=== PATIENT | male | born 1935 | race Hispanic/Latino ===

== ENCOUNTER 2017-05-14 11:28 | Inpatient (IN) | payer MEDICARE ==
--- NOTE | 2017-05-14 13:31 | C.PDOC ---
History Of Present Illness 81-year-old male brought in by EMS with complaints of feeling unwell. Son reports that patient lives with his other brother; apparently today they were being evicted from thier hous. EMS was called, jen apparently found in his own bed, covered in feces. Patient is awake & aler but mildly confused. Denies current physical complaints. Time Seen by Provider: 05/14/17 12:09 Chief Complaint (Nursing): Medical Clearance History Per: Patient, Family (son at bedside ) History/Exam Limitations: other (mild confusion ) Past Medical History Reviewed: Historical Data, Nursing Documentation, Vital Signs Vital Signs: Last Vital Signs Temp 97.9 F 05/20/17 08:30 Pulse 105 H 05/20/17 09:47 Resp 20 05/20/17 08:30 BP 152/75 H 05/20/17 09:47 Pulse Ox 95 05/20/17 08:30 - Medical History PMH: No Chronic Diseases Surgical History: CABG Family History: States: No Known Family Hx - Social History Hx Alcohol Use: No Hx Substance Use: No - Immunization History Hx Tetanus Toxoid Vaccination: No Hx Influenza Vaccination: No Hx Pneumococcal Vaccination: No Review Of Systems Except As Marked, All Systems Reviewed And Found Negative. Constitutional: Negative for: Fever, Weakness Cardiovascular: Negative for: Chest Pain, Palpitations Respiratory: Negative for: Shortness of Breath Gastrointestinal: Negative for: Nausea, Vomiting, Abdominal Pain Neurological: Positive for: Other (mildly confused ). Negative for: Weakness, Numbness, Headache, Dizziness Physical Exam - Physical Exam Appears: Well, Non-toxic, No Acute Distress Skin: Warm, Dry, No Rash Head: Atraumatic, Normacephalic Eye(s): bilateral: Normal Inspection, PERRL Oral Mucosa: Moist Cardiovascular: Rhythm Regular (mildy tachycardic ), No Murmur Respiratory: Normal Breath Sounds, No Rales, No Rhonchi, No Wheezing Extremity: Normal ROM, No Deformity, No Swelling Neurological/Psych: Other (awake, alert, mildly confused ) ED Course And Treatment - Laboratory Results Result Diagrams: 05/19/17 07:51 05/19/17 07:51 ECG: Interpreted By Me, Viewed By Me (sinus tachycardia 102 bpm, with PACs, left axis deviation, Q waves III, aVF, no acute ST changes) ECG Interpretation: Abnormal O2 Sat by Pulse Oximetry: 98 (RA) Pulse Ox Interpretation: Normal Progress Note: Bloodwork, UA, EKG ordered and reviewed. UA (+) for UTI, IV rocephin given. IV NS bolus given. - Physician Consult Information Physician Contacted: Edwar Marroquin Outcome Of Conversation: Discussed patient with Dr. Mateo Marroquin for UTI, failure to thrive, unable to take care of self, delirium. Disposition - Disposition Disposition: HOSPITALIZED Disposition Time: 16:57 Condition: STABLE - Clinical Impression Clinical Impression: UTI (urinary tract infection), Failure to thrive, Delirium - Scribe Statement The provider has reviewed the documentation as recorded by the Scribe (Sandor Alatorre) All medical record entries made by the Scribe were at my direction and personally dictated by me. I have reviewed the chart and agree that the record accurately reflects my personal performance of the history, physical exam, medical decision making, and the department course for this patient. I have also personally directed, reviewed, and agree with the discharge instructions and disposition. Decision To Admit - Pt Status Changed To: Hospital Disposition Of: Inpatient - Admit Certification Admit to Inpatient:: After my assessment, the patient will require hospitalization for at least two midnights. This is because of the severity of symptoms shown, intensity of services needed, and/or the medical risk in this patient being treated as an outpatient. - InPatient: Physician Admission Certification: I certify that this patient requires 2 or more midnights of care for the following reason:: see notes - . Bed Request Type: Regular Admitting Physician: Edwar Marroquin Patient Diagnosis: UTI (urinary tract infection), Failure to thrive, Delirium
--- NOTE | 2017-05-14 14:50 | RAD ---
HISTORY: EVAL COMPARISON: Chest x-ray image performed 09/13/10 TECHNIQUE: Chest, one view. FINDINGS: Examination limited by habitus. LUNGS: Mild interstitial prominence may be chronic. Mild biapical pleural thickening. No focal consolidation. Scattered probable calcified granulomas. Please note that chest x-ray has limited sensitivity for the detection of pulmonary masses. PLEURA: No significant pleural effusion identified. No definite pneumothorax . CARDIOVASCULAR: Median sternotomy wires with evidence of CABG. Prosthetic cardiac valve. Mild cardiomegaly. Ectatic aorta containing atherosclerotic calcifications. OSSEOUS STRUCTURES: Degenerative changes. VISUALIZED UPPER ABDOMEN: Unremarkable. OTHER FINDINGS: None. IMPRESSION: Mild interstitial prominence may be chronic. Mild biapical pleural thickening. Scattered probable calcified granulomas. Mild cardiomegaly. Median sternotomy wires with evidence of CABG and prosthetic cardiac valve.
[2017-05-14 15:18] LABS: BASO % 0.2 % (0.0-2.0); EOS # 0.1 K/uL (0.0-0.7); EOS % 1.3 % (0.0-4.0); HEMOGLOBIN 16.6 g/dL (12.0-18.0); LYMPH # 1.4 K/uL (1.0-4.3); LYMPH % 16.4 % (20.0-40.0); MEAN CELL VOLUME 87.9 fL (80.0-94.0); MEAN CORPUSCULAR HGB CONC 35.3 g/dL (33.0-37.0); MEAN PLATELET VOLUME 9.5 fL (7.2-11.7); MONO # 0.7 K/uL (0.0-0.8); MONO % 8.8 % (0.0-10.0); NEUT # 6.1 K/uL (1.8-7.0); NEUT % 73.3 % (50.0-75.0); NRBC % 0.1 % (0.0-2.0); RBC 5.34 Mil/uL (4.40-5.90); RED CELL DISTRIBUTION WIDTH 13.6 % (11.5-14.5); WHITE BLOOD COUNT 8.4 K/uL (4.8-10.8)
[2017-05-14 15:25] LABS: SQUAMOUS EPITHIAL 1 /hpf (0-5); URINE BILIRUBIN NEGATIVE (NEGATIVE); URINE BLOOD NEGATIVE (NEGATIVE); URINE CLARITY Clear (Clear); URINE COLOR Yellow (YELLOW); URINE GLUCOSE (UA) NORMAL (Normal); URINE LEUKOCYTE ESTERASE 2+ Leu/uL (Negative); URINE PROTEIN 1+ mg/dL (NEGATIVE); URINE UROBILINOGEN NORMAL mg/dL (0.2-1.0)
[2017-05-14 15:32] LABS: CALCIUM 9.6 mg/dl (8.6-10.4); GFR AFRICAN-AMERICAN > 60; GFR NON-AFRICAN AMERICAN > 60
[2017-05-14 15:36] LABS: ALB/GLOB RATIO 0.9 (1.0-2.1); ALBUMIN 4.6 g/dL (3.5-5.0); ALT/SGPT < 6 U/L (21-72); AST/SGOT 49 U/L (17-59); BLOOD UREA NITROGEN 23 mg/dL (9-20)
[2017-05-14 15:43] LABS: CK-MB 1.27 ng/mL (0.0-3.38)
[2017-05-14] MEDS ORDERED: cefTRIAXone IV 1 gm in Dextros 50 ML IVPB ONE (17:08)
--- NOTE | 2017-05-14 22:32 | CP.PCM.HP ---
Past Patient History - Past Social History Smoking Status: Never Smoked - PSYCHIATRIC Hx Substance Use: No - SURGICAL HISTORY Hx Coronary Artery Bypass Graft: Yes Meds Allergies/Adverse Reactions: Allergies Allergy/AdvReac Type Severity Reaction Status Date / Time No Known Allergies Allergy Verified 05/14/17 13:33 Results - Vital Signs Recent Vital Signs: Last Vital Signs Temp 98.6 F 05/14/17 19:17 Pulse 103 H 05/14/17 19:17 Resp 20 05/14/17 19:17 BP 129/71 05/14/17 19:17 Pulse Ox 99 05/14/17 19:17 - Labs Result Diagrams: 05/14/17 15:15 05/14/17 15:15 Labs: Laboratory Results - last 24 hr 05/14/17 05/14/17 05/14/17 15:15 15:15 15:15 WBC 8.4 RBC 5.34 Hgb 16.6 Hct 46.9 MCV 87.9 MCH 31.0 MCHC 35.3 RDW 13.6 Plt Count 243 MPV 9.5 Neut % (Auto) 73.3 Lymph % (Auto) 16.4 L [place] % (Auto) 8.8 Eos % (Auto) 1.3 Baso % (Auto) 0.2 Neut # (Auto) 6.1 Lymph # (Auto) 1.4 [place] # (Auto) 0.7 Eos # (Auto) 0.1 Baso # (Auto) 0.0 Sodium 139 Potassium 5.8 H Chloride 99 Carbon Dioxide 25 Anion Gap 20 BUN 23 H Creatinine 0.8 Est GFR ( Amer) > 60 Est GFR (Non-Af Amer) > 60 Random Glucose 146 H Calcium 9.6 Total Bilirubin 1.4 H AST 49 ALT < 6 L Alkaline Phosphatase 92 Total Creatine Kinase 64 CK-MB (Mass) 1.27 Troponin I 0.0150 Total Protein 9.4 H Albumin 4.6 Globulin 4.9 H Albumin/Globulin Ratio 0.9 L Urine Color Yellow Urine Clarity Clear Urine pH 6.0 Ur Specific [place] 1.020 Urine Protein 1+ H Urine Glucose (UA) Normal Urine Ketones Trace Urine Blood Negative Urine Nitrate Negative Urine Bilirubin Negative Urine Urobilinogen Normal Ur Leukocyte Esterase 2+ H Urine WBC (Auto) 26 H Urine RBC (Auto) 3 Ur Squamous Epith Cells 1
[2017-05-15 02:47] LABS: ALBUMIN 3.9 g/dL (3.5-5.0); ALT/SGPT 22 U/L (21-72); AST/SGOT 18 U/L (17-59); BLOOD UREA NITROGEN 30 mg/dL (9-20); CALCIUM 9.3 mg/dl (8.6-10.4); GFR AFRICAN-AMERICAN > 60; GFR NON-AFRICAN AMERICAN > 60
--- NOTE | 2017-05-15 07:47 | CARD ---
APPROVED REPORT EKG Measurement Heart [id number] <Conclusion> Sinus tachycardia with premature atrial complexes Minimal voltage criteria for LVH, may be normal variant Inferior infarct, age undetermined Anterior infarct, age undetermined T wave abnormality, consider lateral ischemia Abnormal ECG
[2017-05-15] MEDS: Enoxaparin 40 mg Syringe SC SCH (09:41)
[2017-05-15] MEDS: Pantoprazole 40 mg EC Tab PO SCH (09:41)
--- NOTE | 2017-05-15 10:48 | CP.PCM.CON ---
History of Present Illness - History of Present Illness History of Present Illness: Neurology Consult Note for Dr. Gray Reason for consult: Altered mental status This is an 81 year old male with PMHx CAD s/p CABG 5 years ago who presented to the hospital with complaint of right sided abdominal pain. Patient states that he does not recall who called the ambulance for him. Patient states that he had this pain for the past 3 days. Per the ED note, patient was found covered in feces. Patient states that he lives with one of his sons who helps take care of him. Patient states that he is independent in ambulation and spends his time watching television or walking around his neighborhood. Patient denies acute changes in vision, dizziness, headache, tremors, weakness, paresthesias. PMHx: CAD PSHx: CABG 5 years ago Allergies: NKDA Social: Lives with son. Retired carpentry/danica worker. Denies tobacco, alcohol, drugs. Family Hx: Heart disease runs in the family PMD: denies Home medications: denies Review of Systems - Constitutional Constitutional: absent: Chills, Fever - EENT Eyes: absent: Change in Vision Ears: absent: Decreased Hearing Nose/Mouth/Throat: absent: Nasal Congestion - Cardiovascular Cardiovascular: absent: Chest Pain - Respiratory Respiratory: absent: Dyspnea - Gastrointestinal Gastrointestinal: absent: Abdominal Pain, Nausea, Vomiting - Genitourinary Genitourinary: absent: Dysuria, Urinary Frequency - Musculoskeletal Musculoskeletal: absent: Numbness, Tingling - Integumentary Integumentary: absent: Rash - Neurological Neurological: absent: Dizziness, Numbness, Headaches, Tingling, Tremor, Weakness - Psychiatric Psychiatric: absent: Anxiety - Endocrine Endocrine: absent: Palpitations Past Patient History - Past Medical History & Family History Past Medical History?: Yes - Past Social History Smoking Status: Never Smoked - MUSCULOSKELETAL/RHEUMATOLOGICAL Hx Falls: No - PSYCHIATRIC Hx Substance Use: No - SURGICAL HISTORY Hx Coronary Artery Bypass Graft: Yes Meds Allergies/Adverse Reactions: Allergies Allergy/AdvReac Type Severity Reaction Status Date / Time No Known Allergies Allergy Verified 05/14/17 13:33 - Medications Medications: Current Medications Enoxaparin Sodium (Lovenox) 40 mg SC DAILY [facility] Last Admin: 05/15/17 09:41 Dose: 40 mg Ceftriaxone Sodium 1 gm/ (Sodium Chloride) 100 mls @ 100 mls/hr IVPB DAILY [facility] Last Admin: 05/15/17 09:40 Dose: 100 mls/hr Pantoprazole Sodium (Protonix Ec Tab) 40 mg PO DAILY [facility] Last Admin: 05/15/17 09:41 Dose: 40 mg Pneumococcal Polyvalent Vaccine (Pneumovax 23 Vaccine) 0.5 ml IM .ONCE ONE Stop: 05/17/17 14:01 Physical Exam - Constitutional Appears: No Acute Distress - Head Exam Head Exam: ATRAUMATIC, NORMOCEPHALIC - Eye Exam Eye Exam: EOMI, PERRL - ENT Exam ENT Exam: Mucous Membranes Moist - Respiratory Exam Respiratory Exam: Clear to Auscultation Bilateral, NORMAL BREATHING PATTERN. absent: Rales, Rhonchi, Wheezes - Cardiovascular Exam Cardiovascular Exam: REGULAR RHYTHM, +S1, +S2, Systolic Murmur - GI/Abdominal Exam GI & Abdominal Exam: Normal Bowel Sounds, Soft. absent: Distended, Firm, Tenderness - Extremities Exam Extremities exam: Negative for: pedal edema - Neurological Exam Neurological exam: Alert, CN II-XII Intact, Normal Gait Additional comments: Oriented to person and place. Believes that the year is 1982, but also states that Alvin is the president. Patient is very forgetful having forgotten encounter with resident earlier in the morning. Muscle strength 5/5 in all 4 extremities. Sensations to light touch intact in all 4 extremities. Deep tendon reflexes 1/4 in all 4 extremities. - Psychiatric Exam Psychiatric exam: Normal Affect, Normal Mood Results - Vital Signs Recent Vital Signs: Last Vital Signs Temp 98.2 F 05/15/17 07:32 Pulse 88 05/15/17 07:32 Resp 20 05/15/17 07:32 BP 164/75 H 05/15/17 07:32 Pulse Ox 96 05/15/17 07:32 - Labs Result Diagrams: 05/14/17 15:15 05/15/17 02:26 Labs: Laboratory Results - last 24 hr 05/14/17 05/14/17 05/14/17 15:15 15:15 15:15 WBC 8.4 RBC 5.34 Hgb 16.6 Hct 46.9 MCV 87.9 MCH 31.0 MCHC 35.3 RDW 13.6 Plt Count 243 MPV 9.5 Neut % (Auto) 73.3 Lymph % (Auto) 16.4 L [place] % (Auto) 8.8 Eos % (Auto) 1.3 Baso % (Auto) 0.2 Neut # (Auto) 6.1 Lymph # (Auto) 1.4 [place] # (Auto) 0.7 Eos # (Auto) 0.1 Baso # (Auto) 0.0 Sodium 139 Potassium 5.8 H Chloride 99 Carbon Dioxide 25 Anion Gap 20 BUN 23 H Creatinine 0.8 Est GFR ( Amer) > 60 Est GFR (Non-Af Amer) > 60 Random Glucose 146 H Calcium 9.6 Total Bilirubin 1.4 H AST 49 ALT < 6 L Alkaline Phosphatase 92 Total Creatine Kinase 64 CK-MB (Mass) 1.27 Troponin I 0.0150 Total Protein 9.4 H Albumin 4.6 Globulin 4.9 H Albumin/Globulin Ratio 0.9 L Vitamin B12 Folate TSH 3rd Generation Urine Color Yellow Urine Clarity Clear Urine pH 6.0 Ur Specific [place] 1.020 Urine Protein 1+ H Urine Glucose (UA) Normal Urine Ketones Trace Urine Blood Negative Urine Nitrate Negative Urine Bilirubin Negative Urine Urobilinogen Normal Ur Leukocyte Esterase 2+ H Urine WBC (Auto) 26 H Urine RBC (Auto) 3 Ur Squamous Epith Cells 1 05/14/17 05/15/17 22:45 02:26 WBC RBC Hgb Hct MCV MCH MCHC RDW Plt Count MPV Neut % (Auto) Lymph % (Auto) [place] % (Auto) Eos % (Auto) Baso % (Auto) Neut # (Auto) Lymph # (Auto) [place] # (Auto) Eos # (Auto) Baso # (Auto) Sodium 139 Potassium 4.4 Chloride 100 Carbon Dioxide 26 Anion Gap 17 BUN 30 H Creatinine 1.0 Est GFR ( Amer) > 60 Est GFR (Non-Af Amer) > 60 Random Glucose 144 H Calcium 9.3 Total Bilirubin 0.5 AST 18 ALT 22 Alkaline Phosphatase 66 Total Creatine Kinase CK-MB (Mass) Troponin I Total Protein 7.8 Albumin 3.9 Globulin 3.9 Albumin/Globulin Ratio 1.0 Vitamin B12 Cancelled 391 Folate > 20.0 TSH 3rd Generation 7.63 H Urine Color Urine Clarity Urine pH Ur Specific [place] Urine Protein Urine Glucose (UA) Urine Ketones Urine Blood Urine Nitrate Urine Bilirubin Urine Urobilinogen Ur Leukocyte Esterase Urine WBC (Auto) Urine RBC (Auto) Ur Squamous Epith Cells Assessment & Plan - Assessment and Plan (Free Text) Assessment: This is an 81 year old male with PMHx CAD s/p CABG 5 years ago who was admitted to the hospital for UTI. Neurology consulted for altered mental status. At this time he is not altered. Patient likely had an episode of toxic metabolic encephalopathy from the UTI that is now resolving because its source is being treated. However, we cannot exclude the possibility of seizures as a cause just yet. 1. 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 Per Dr. Gray, also see old right cerebellum, and anterior circulation territory lesions. Old infarcts likely from atherosclerotic disease Follow up official Head CTA read. Per Dr. Gray, there appears to be calcifications in the vertebral arteries as well as left DELICATESSEN CLERK stenosis. Follow up carotid duplex Follow up MRI w. & w.o. contrast Patient seen and discussed with Dr. Gray
[2017-05-15] MEDS ORDERED: Iodixanol 320 mg/ml 150 ml Bottle IV ONE (12:31)
--- NOTE | 2017-05-15 13:55 | CT ---
PROCEDURE: CT HEAD WITHOUT CONTRAST. HISTORY: AMS COMPARISON: None available. TECHNIQUE: Axial computed tomography images were obtained through the head/brain without intravenous contrast. Radiation dose: Total exam DLP = 1088.61 mGy-cm. This CT exam was performed using one or more of the following dose reduction techniques: Automated exposure control, adjustment of the mA and/or kV according to patient size, and/or use of iterative reconstruction technique. FINDINGS: HEMORRHAGE: No intracranial hemorrhage. BRAIN: There is an old infarction in the left occipital lobe. There is no mass, mass effect or abnormal extra-axial fluid collection.There are coarse atherosclerotic calcifications in the cavernous carotid arteries. VENTRICLES: There is moderate age-related global parenchymal volume loss and proportionate enlargement of the ventricles and cortical sulci. There is mild nonspecific prominence of bifrontal extra-axial CSF spaces. CALVARIUM: The skull base and calvarium are normal. PARANASAL SINUSES: Predominantly clear. MASTOID AIR CELLS: Predominantly clear. OTHER FINDINGS: None. IMPRESSION: No acute intracranial abnormality. 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
--- NOTE | 2017-05-15 15:28 | CT ---
PROCEDURE: CTA HEAD AND NECK WITH CONTRAST HISTORY: Altered mental status COMPARISON: None available. TECHNIQUE: Initial noncontrast head CT was performed. Subsequently, CT angiogram of the head and neck were performed after the intravenous administration of 80 mL of Omnipaque 350. Contiguous 1.5mm thick images were obtained in the axial plane of the neck. 2-D coronal and sagittal MPR images were obtained. Imaging postprocessing was performed with 3-D images also obtained. A delayed contrast head CT was also obtained. This CT exam was performed using one or more of the following dose reduction techniques: Automated exposure control, adjustment of the mA and/or kV according to patient size, and/or use of iterative reconstruction technique. Contrast dose: 100 ML Visipaque Radiation dose: Total exam DLP = 611.45 mGy-cm. FINDINGS: HEAD: There are advanced atherosclerotic calcifications in the cavernous carotid arteries. Right: The intracranial internal carotid artery, and anterior and middle cerebral arteries are widely patent. Left: There is severe asymmetric narrowing of the intracranial internal carotid artery. The A1 segment is aplastic, an anatomic variant. The A2 segment of the anterior cerebral artery is widely patent. There is asymmetric narrowing of the M1 and M2 segments of the middle cerebral artery with mild attenuation of distal sylvian branches. Posterior circulation: The visualized intracranial vertebral arteries, basilar artery and posterior cerebral arteries are widely patent. Ther is no endoluminal filling defect to suggest thrombus. There is no intracranial saccular aneurysm. There is no abnormal enhancement on the postcontrast CT. NECK: There is a three vessel aortic arch. There is advanced atherosclerotic calcifications at the origins of the great vessels at the level of the aortic arch without significant stenosis. Right Carotid: On the right, the common carotid and external carotid arteries are widely patent. There are advanced atherosclerotic calcified plaques in the carotid bulb and proximal internal carotid artery with resultant severe hemodynamically significant approximately 76% stenosis by NASCET criteria. Left Carotid: On the left, the common carotid and external carotid arteries are widely patent.T there are severe calcified and noncalcified atherosclerotic plaques in the proximal internal carotid artery with resultant critical hemodynamically significant stenosis in the proximal internal carotid artery and a collapsed thread-like severely narrow distal internal carotid artery. The vertebral arteries are widely patent. The the left vertebral artery is dominant, an anatomic variant. IMPRESSION: 1. Critical hemodynamically significant stenosis in the proximal left internal carotid artery with narrow collapsed thread-like distal internal carotid artery. 2. Asymmetric severely narrow left intracranial internal carotid artery. 3. Asymmetric narrowing of the left middle cerebral artery. 4. Severe hemodynamically significant approximately 76% stenosis in the right proximal internal carotid artery. 5. Patent bilateral vertebral arteries. The left vertebral artery is dominant, an anatomic variant.
[2017-05-15] MEDS ORDERED: Gadodiamide 287 MG/ML VIAL (15ML) IV ONE (17:13)
--- NOTE | 2017-05-15 17:37 | CP.PCM.PN ---
Subjective - Date & Time of Evaluation Date of Evaluation: 05/15/17 Time of Evaluation: 12:40 - Subjective Subjective: clinically same Objective - Vital Signs/Intake and Output Vital Signs (last 24 hours): Temp Pulse Resp BP Pulse Ox 97.7 F 92 H 18 129/55 L 95 05/15/17 15:05 05/15/17 15:55 05/15/17 15:05 05/15/17 15:05 05/15/17 15:05 Intake and Output: 05/15/17 05/15/17 06:59 18:59 Intake Total 400 Balance 400 - Medications Medications: Current Medications Enoxaparin Sodium (Lovenox) 40 mg SC DAILY [facility] Last Admin: 05/15/17 09:41 Dose: 40 mg Ceftriaxone Sodium 1 gm/ (Sodium Chloride) 100 mls @ 100 mls/hr IVPB DAILY [facility] Last Admin: 05/15/17 09:40 Dose: 100 mls/hr Pantoprazole Sodium (Protonix Ec Tab) 40 mg PO DAILY [facility] Last Admin: 05/15/17 09:41 Dose: 40 mg Pneumococcal Polyvalent Vaccine (Pneumovax 23 Vaccine) 0.5 ml IM .ONCE ONE Stop: 05/17/17 14:01 - Labs Labs: 05/14/17 15:15 05/15/17 02:26 - Constitutional Appears: Well - Head Exam Head Exam: ATRAUMATIC, NORMAL INSPECTION, NORMOCEPHALIC - Eye Exam Eye Exam: EOMI, Normal appearance, PERRL Pupil Exam: NORMAL ACCOMODATION, PERRL - ENT Exam ENT Exam: Mucous Membranes Moist, Normal Exam - Neck Exam Neck Exam: Full ROM, Normal Inspection. absent: Lymphadenopathy - Respiratory Exam Respiratory Exam: Decreased Breath Sounds - Cardiovascular Exam Cardiovascular Exam: REGULAR RHYTHM, +S1, +S2 - GI/Abdominal Exam GI & Abdominal Exam: Soft, Diminished Bowel Sounds - Rectal Exam Rectal Exam: Deferred
[2017-05-16] MEDS: Enoxaparin 40 mg Syringe SC SCH (09:35)
[2017-05-16] MEDS: Pantoprazole 40 mg EC Tab PO SCH (09:35)
--- NOTE | 2017-05-16 11:59 | CP.PCM.PN ---
Subjective - Date & Time of Evaluation Date of Evaluation: 05/16/17 Time of Evaluation: 11:40 - Subjective Subjective: Neurology progress note for Dr. Gray Patient seen and examined. Patient reports no acute complaints at this time. Objective - Vital Signs/Intake and Output Vital Signs (last 24 hours): Temp Pulse Resp BP Pulse Ox 97.9 F 87 20 145/72 97 05/16/17 08:30 05/16/17 08:30 05/16/17 08:30 05/16/17 08:30 05/16/17 08:30 Intake and Output: 05/16/17 05/16/17 06:59 18:59 Intake Total 800 Balance 800 - Medications Medications: Current Medications Enoxaparin Sodium (Lovenox) 40 mg SC DAILY [facility] Last Admin: 05/16/17 09:35 Dose: 40 mg Ceftriaxone Sodium 1 gm/ (Sodium Chloride) 100 mls @ 100 mls/hr IVPB DAILY [facility] Last Admin: 05/16/17 09:35 Dose: 100 mls/hr Pantoprazole Sodium (Protonix Ec Tab) 40 mg PO DAILY [facility] Last Admin: 05/16/17 09:35 Dose: 40 mg Pneumococcal Polyvalent Vaccine (Pneumovax 23 Vaccine) 0.5 ml IM .ONCE ONE Stop: 05/17/17 14:01 - Labs Labs: 05/14/17 15:15 05/15/17 02:26 - Constitutional Appears: No Acute Distress - Head Exam Head Exam: ATRAUMATIC, NORMOCEPHALIC - Eye Exam Eye Exam: EOMI, Normal appearance - ENT Exam ENT Exam: Mucous Membranes Moist - Respiratory Exam Respiratory Exam: Clear to Ausculation Bilateral. absent: Rales, Rhonchi, Wheezes - Cardiovascular Exam Cardiovascular Exam: REGULAR RHYTHM, +S1, +S2 - GI/Abdominal Exam GI & Abdominal Exam: Soft, Normal Bowel Sounds. absent: Tenderness - Extremities Exam Extremities Exam: absent: Pedal Edema - Neurological Exam Neurological Exam: Alert, Awake Additional comments: Oriented to person and place. Believes that the year is 1982, but also states that Alvin is the president. Patient is very forgetful having forgotten encounter with resident earlier in the morning. Muscle strength 5/5 in all 4 extremities. Sensations to light touch intact in all 4 extremities. Deep tendon reflexes 1/4 in all 4 extremities. - Psychiatric Exam Psychiatric exam: Normal Affect, Normal Mood - Skin Skin Exam: Dry, Warm Assessment and Plan - Assessment and Plan (Free Text) Assessment: This is an 81 year old male with PMHx CAD s/p CABG 5 years ago who was admitted to the hospital for UTI. Neurology consulted for altered mental status. At this time he is not altered. Patient likely had an episode of toxic metabolic encephalopathy from the UTI that is now resolving because its source is being treated. However, we cannot exclude the possibility of seizures as a cause just yet. 1. Altered Mental Status Likely toxic metabolic encephalopathy from UTI Medical management for treatment of UTI Maintain adequate hydration Maintain normotension Maintain euglycemic state CT Head reveals old left RADIOPHARMACIST territory infarct. Per Dr. Gray, also see old right cerebellum, and anterior circulation territory lesions. Old infarcts likely from atherosclerotic disease Head CTA report: * Critically hemodynamically significant stenosis in the proximal left internal carotid artery with narrow collapsed thread-like distal internal carotid artery * asymmetric severely narrow left intracranial internal carotid artery * asymmetric narrowing of left MCA * Severe hemodynamically significant approximately 76% stenosis in the right proximal internal carotid artery * Patent vertebral arteries with left side dominant Carotid duplex preliminary report shows significant stenosis on the left and moderate on the right MRI w. & w.o. contrast reiterated old infarcts. No new acute infarcts seen. 2. Bilateral Carotid Disease Due to the bilateral carotid disease, patient will need to be on dual anti- platelet therapy and statin. Continue ASA 81 mg, Plavix 75 mg, and Crestor [address] Ramirez consulted, help appreciated Patient seen and discussed with Dr. Gray
--- NOTE | 2017-05-16 13:33 | VASCLAB ---
PROCEDURE: HISTORY: Carotid artery stenosis, AMS COMPARISON: None available. TECHNIQUE: Grayscale and duplex Doppler evaluation of the cervical carotid and vertebral arteries were performed. The common carotid, carotid bifurcations and cervical Internal Carotid Artery (ICA) and proximal External Carotid Artery (ECA) were evaluated. The vertebral arteries were evaluated for gross patency and flow direction. Report prepared by Ryland Dixon, BS, RVT FINDINGS: RIGHT CAROTID ARTERIES: 1. Common Carotid Artery: Moderate plaque formation of the right proximal CCA which does not results in hemodynamically significant stenosis. Maximum Peak Systolic velocity: 78 cm/sec: End-diastolic velocity 14 cm/sec. 2. Carotid Bifurcation: Calcific plaque formation. Maximum Peak Systolic velocity: 81 cm/sec: End-diastolic velocity 15 cm/sec. 3. Internal Carotid Artery: Severe plaque formation of the right proximal ICA which results in a hemodynamically significant stenosis. Plaque description: Calcific 3.1. Proximal Segment: Peak systolic velocity 231 cm/sec: End-diastolic velocity 67 cm/sec - % stenosis 70-95% 3.2. Middle Segment: Peak systolic velocity 164 cm/sec: End-diastolic velocity 37 cm/sec - % stenosis 50-60% 3.3. Distal Segment: Peak systolic velocity 127 cm/sec: End-diastolic velocity 40 cm/sec - % stenosis 0-15% 4. External Carotid Artery: No significant focal plaque formation. Peak systolic velocity 193 cm/sec 5. ICA/CCA Ratio: 3.0 LEFT CAROTID ARTERIES: 1. Common Carotid Artery: Moderate plaque formation of the left proximal CCA which does not results in hemodynamically significant stenosis. Maximum Peak Systolic velocity: 101 cm/sec: End-diastolic velocity 0 cm/sec. 2. Carotid Bifurcation: Calcific plaque formation. Maximum Peak Systolic velocity: 133 cm/sec: End-diastolic velocity 0 cm/sec. 3. Internal Carotid Artery: Severe plaque formation of the left proximal ICA which results in a hemodynamically significant stenosis. Plaque description: Calcific 3.1. Proximal Segment: Peak systolic velocity 49 cm/sec: End-diastolic velocity 0 cm/sec - % stenosis 0-15% 3.2. Middle Segment: Peak systolic velocity 109 cm/sec: End-diastolic velocity 0 cm/sec - % stenosis 0-15% 3.3. Distal Segment: Peak systolic velocity 29 cm/sec: End-diastolic velocity 0 cm/sec - % stenosis 0-15% 4. External Carotid Artery: No significant focal plaque formation. Peak systolic velocity 193 cm/sec 5. ICA/CCA Ratio: 1.3 VERTEBRAL ARTERIES: 1. Right Vertebral Artery: The right vertebral artery flow direction is antegrade. 2. Left Vertebral Artery: The left vertebral artery flow direction is antegrade. OTHER FINDINGS: 1. Right Brachial Blood pressure: 160 mmHg. 2. Left Brachial Blood pressure: IV line mmHg. IMPRESSION: RIGHT: 70-95% hemodynamically significant stenosis of the right extracranial carotid arteries. LEFT: The left internal carotid artery flow velocities are suggestive of more distal occlusion.
--- NOTE | 2017-05-16 14:43 | MRI ---
PROCEDURE: MRI of the brain dated 05/15/2017 HISTORY: Old infarcts. check for epileptogenic lesions comparison COMPARISON: Comparison made with CT scan and CTA brain dated 05/15/2017. TECHNIQUE: Multiplanar, multisequence MR images of the brain were obtained with and without intravenous contrast enhancement. 12 cc Omniscan injected for this examination. FINDINGS: HEMORRHAGE: The current study reveals no acute parenchymal, subarachnoid nor extra-axial hemorrhage. No evidence of hemosiderin deposition seen on gradient echo weighted sequence. DWI: No evidence of an acute or early subacute infarction seen on diffusion imaging. . BRAIN PARENCHYMA: Mild diffuse/ confluent chronic periventricular white matter ischemic changes most pronounced in the parietal regions left greater than right as well as a chronic discrete left posterior occipito parietal watershed zone infarct seen to better advantage on this exam as compared to CT scan of the brain. . Few scattered chronic bilateral basal nuclei as well as brainstem and left cerebellar chronic infarct changes are also present. . No enhancing parenchymal nor extra-axial masses or collections. No evidence of unusual meningeal enhancement. Moderate to significant generalized volume loss. ENHANCEMENT: No abnormal intracranial enhancement as above. . VENTRICLES: No obstructive hydrocephalus. . CRANIUM: Unremarkable. ORBITS: Grossly unremarkable. PARANASAL SINUSES/MASTOIDS: Clear VASCULAR SYSTEM: Questionable partial occlusion petrous and proximal cavernous segment left internal carotid artery. The remaining visualized major vascular flow voids at skull base patent. OTHER FINDINGS: None . IMPRESSION: No evidence of acute intracranial hemorrhage or infarct. Chronic white matter, basal nuclei, brainstem and cerebellar ischemic changes. 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 Suspect partial occlusion of the left internal carotid artery as detailed above. Moderate to significant volume loss. No evidence of enhancing lesions.
--- NOTE | 2017-05-16 15:31 | CP.PCM.PN ---
Subjective - Date & Time of Evaluation Date of Evaluation: 05/16/17 Time of Evaluation: 10:00 - Subjective Subjective: clinically same Objective - Vital Signs/Intake and Output Vital Signs (last 24 hours): Temp Pulse Resp BP Pulse Ox 97.9 F 87 20 145/72 97 05/16/17 08:30 05/16/17 08:30 05/16/17 08:30 05/16/17 08:30 05/16/17 08:30 Intake and Output: 05/16/17 05/16/17 06:59 18:59 Intake Total 800 Balance 800 - Medications Medications: Current Medications Enoxaparin Sodium (Lovenox) 40 mg SC DAILY [facility] Last Admin: 05/16/17 09:35 Dose: 40 mg Ceftriaxone Sodium 1 gm/ (Sodium Chloride) 100 mls @ 100 mls/hr IVPB DAILY [facility] Last Admin: 05/16/17 09:35 Dose: 100 mls/hr Pantoprazole Sodium (Protonix Ec Tab) 40 mg PO DAILY [facility] Last Admin: 05/16/17 09:35 Dose: 40 mg Pneumococcal Polyvalent Vaccine (Pneumovax 23 Vaccine) 0.5 ml IM .ONCE ONE Stop: 05/17/17 14:01 - Labs Labs: 05/14/17 15:15 05/15/17 02:26 - Constitutional Appears: Well - Head Exam Head Exam: ATRAUMATIC, NORMAL INSPECTION, NORMOCEPHALIC - Eye Exam Eye Exam: EOMI, Normal appearance, PERRL Pupil Exam: NORMAL ACCOMODATION, PERRL - ENT Exam ENT Exam: Mucous Membranes Moist, Normal Exam - Neck Exam Neck Exam: Full ROM, Normal Inspection. absent: Lymphadenopathy - Respiratory Exam Respiratory Exam: Decreased Breath Sounds - Cardiovascular Exam Cardiovascular Exam: REGULAR RHYTHM, +S1, +S2 - GI/Abdominal Exam GI & Abdominal Exam: Soft, Diminished Bowel Sounds - Rectal Exam Rectal Exam: Deferred
[2017-05-17] MEDS: Enoxaparin 40 mg Syringe SC SCH (10:31)
--- NOTE | 2017-05-17 11:18 | CP.PCM.PN ---
<Cortez Mendiola - Last Filed: 05/17/17 17:11> Subjective - Date & Time of Evaluation Date of Evaluation: 05/17/17 Time of Evaluation: 10:45 - Subjective Subjective: Neurology progress note for Dr. Gray Patient seen and examined. Patient states that he is doing fine today and has no complaints at this time. No acute events overnight per staff. Objective - Vital Signs/Intake and Output Vital Signs (last 24 hours): Temp Pulse Resp BP Pulse Ox 98.0 F 86 18 172/77 H 97 05/17/17 08:30 05/17/17 08:30 05/17/17 08:30 05/17/17 08:30 05/17/17 08:30 Intake and Output: 05/17/17 05/17/17 06:59 18:59 Intake Total 240 Balance 240 - Medications Medications: Current Medications Aspirin (Ecotrin) 81 mg PO DAILY [facility] Last Admin: 05/17/17 10:32 Dose: 81 mg Clopidogrel Bisulfate (Plavix) 75 mg PO DAILY [facility] Last Admin: 05/17/17 10:31 Dose: 75 mg Enoxaparin Sodium (Lovenox) 40 mg SC DAILY [facility] Last Admin: 05/17/17 10:31 Dose: 40 mg Famotidine (Pepcid) 20 mg PO BID [facility] Last Admin: 05/17/17 10:31 Dose: 20 mg Ceftriaxone Sodium 1 gm/ (Sodium Chloride) 100 mls @ 100 mls/hr IVPB DAILY [facility] Last Admin: 05/17/17 10:31 Dose: 100 mls/hr Pneumococcal Polyvalent Vaccine (Pneumovax 23 Vaccine) 0.5 ml IM .ONCE ONE Stop: 05/17/17 14:01 Rosuvastatin Calcium (Crestor) 10 mg PO [facility] Last Admin: 05/16/17 21:55 Dose: 10 mg - Labs Labs: 05/14/17 15:15 05/15/17 02:26 - Additional Findings Additional findings: - Constitutional Appears: No Acute Distress - Head Exam Head Exam: ATRAUMATIC, NORMOCEPHALIC - Eye Exam Eye Exam: EOMI, Normal appearance - ENT Exam ENT Exam: Mucous Membranes Moist - Respiratory Exam Respiratory Exam: Clear to Ausculation Bilateral. absent: Rales, Rhonchi, Wheezes - Cardiovascular Exam Cardiovascular Exam: REGULAR RHYTHM, +S1, +S2 - GI/Abdominal Exam GI & Abdominal Exam: Soft, Normal Bowel Sounds. absent: Tenderness - Extremities Exam Extremities Exam: absent: Pedal Edema - Neurological Exam Neurological Exam: Alert, Awake Additional comments: Oriented to person and place. Believes that the year is 1982, but also states that Alvin is the president. Patient is very forgetful having forgotten encounter with resident earlier in the morning. Muscle strength 5/5 in all 4 extremities. Sensations to light touch intact in all 4 extremities. Deep tendon reflexes 1/4 in all 4 extremities. - Psychiatric Exam Psychiatric exam: Normal Affect, Normal Mood - Skin Skin Exam: Dry, Warm Assessment and Plan - Assessment and Plan (Free Text) Assessment: This is an 81 year old male with PMHx CAD s/p CABG 5 years ago who was admitted to the hospital for UTI. Neurology consulted for altered mental status. At this time he is not altered. Patient likely had an episode of toxic metabolic encephalopathy from the UTI that is now resolving because its source is being treated. However, we cannot exclude the possibility of seizures as a cause just yet. Patient may have had a TIA since he was found at home lethargic and covered in feces. Plan: 1. Altered Mental Status Likely toxic metabolic encephalopathy from UTI versus TIA versus seizures Medical management for treatment of UTI Maintain adequate hydration Maintain normotension Maintain euglycemic state CT Head reveals old left FRE[employer]ER territory infarct. Per Dr. Gray, also see old right cerebellum, and anterior circulation territory lesions. Old infarcts likely from atherosclerotic disease Head CTA report: * Critically hemodynamically significant stenosis in the proximal left internal carotid artery with narrow collapsed thread-like distal internal carotid artery * asymmetric severely narrow left intracranial internal carotid artery * asymmetric narrowing of left MCA * Severe hemodynamically significant approximately 76% stenosis in the right proximal internal carotid artery * Patent vertebral arteries with left side dominant Carotid duplex preliminary report shows significant stenosis on the left and moderate on the right MRI w. & w.o. contrast reiterated old infarcts. No new acute infarcts seen. 2. Bilateral Carotid Disease with the possibility of an induced TIA as a result Due to the bilateral carotid disease, patient will need to be on dual anti- platelet therapy and statin. Continue ASA 81 mg, Plavix 75 mg, and Crestor [address] Ramirez consulted, help appreciated Tentative intervention for left carotid stenosis on Saturday Discussed with Dr. Gray <Min Gray - Last Filed: 05/18/17 17:53> Objective - Vital Signs/Intake and Output Vital Signs (last 24 hours): Temp Pulse Resp BP Pulse Ox 98.2 F 90 20 148/67 96 05/18/17 15:00 05/18/17 15:00 05/18/17 15:00 05/18/17 15:00 05/18/17 15:00 Intake and Output: 05/18/17 05/18/17 06:59 18:59 Intake Total 100 630 Balance 100 630 - Medications Medications: Current Medications Amlodipine Besylate (Norvasc) 5 mg PO DAILY [facility] Aspirin (Ecotrin) 81 mg PO DAILY [facility] Last Admin: 05/18/17 09:41 Dose: 81 mg Clopidogrel Bisulfate (Plavix) 75 mg PO DAILY [facility] Last Admin: 05/18/17 09:41 Dose: 75 mg Enoxaparin Sodium (Lovenox) 40 mg SC DAILY [facility] Last Admin: 05/18/17 09:41 Dose: 40 mg Famotidine (Pepcid) 20 mg PO BID [facility] Last Admin: 05/18/17 09:41 Dose: 20 mg Ceftriaxone Sodium 1 gm/ (Sodium Chloride) 100 mls @ 100 mls/hr IVPB DAILY [facility] Last Admin: 05/18/17 10:23 Dose: 100 mls/hr Rosuvastatin Calcium (Crestor) 10 mg PO HS [facility] Last Admin: 05/17/17 21:22 Dose: 10 mg - Labs Labs: 05/18/17 08:51 05/18/17 08:51 Attending/Attestation - Attestation I have personally seen and examined this patient.: Yes I have fully participated in the care of the patient.: Yes I have reviewed all pertinent clinical information, including history, physical exam and plan: Yes
[2017-05-17] MEDS ORDERED: Pneumococcal 23-Valent Vaccine IM ONE (14:00)
--- NOTE | 2017-05-17 17:12 | CP.PCM.PN ---
Subjective - Date & Time of Evaluation Date of Evaluation: 05/17/17 Time of Evaluation: 08:50 - Subjective Subjective: clinically same Objective - Vital Signs/Intake and Output Vital Signs (last 24 hours): Temp Pulse Resp BP Pulse Ox 97.9 F 83 20 154/68 H 95 05/17/17 15:58 05/17/17 15:58 05/17/17 15:58 05/17/17 15:58 05/17/17 15:58 Intake and Output: 05/17/17 05/17/17 06:59 18:59 Intake Total 240 Balance 240 - Medications Medications: Current Medications Aspirin (Ecotrin) 81 mg PO DAILY [facility] Last Admin: 05/17/17 10:32 Dose: 81 mg Clopidogrel Bisulfate (Plavix) 75 mg PO DAILY [facility] Last Admin: 05/17/17 10:31 Dose: 75 mg Enoxaparin Sodium (Lovenox) 40 mg SC DAILY [facility] Last Admin: 05/17/17 10:31 Dose: 40 mg Famotidine (Pepcid) 20 mg PO BID [facility] Last Admin: 05/17/17 10:31 Dose: 20 mg Ceftriaxone Sodium 1 gm/ (Sodium Chloride) 100 mls @ 100 mls/hr IVPB DAILY [facility] Last Admin: 05/17/17 10:31 Dose: 100 mls/hr Rosuvastatin Calcium (Crestor) 10 mg PO HS [facility] Last Admin: 05/16/17 21:55 Dose: 10 mg - Labs Labs: 05/14/17 15:15 05/15/17 02:26 - Constitutional Appears: Well - Head Exam Head Exam: ATRAUMATIC, NORMAL INSPECTION, NORMOCEPHALIC - Eye Exam Eye Exam: EOMI, Normal appearance, PERRL Pupil Exam: NORMAL ACCOMODATION, PERRL - ENT Exam ENT Exam: Mucous Membranes Moist, Normal Exam - Neck Exam Neck Exam: Full ROM, Normal Inspection. absent: Lymphadenopathy - Respiratory Exam Respiratory Exam: Decreased Breath Sounds - Cardiovascular Exam Cardiovascular Exam: REGULAR RHYTHM, +S1, +S2 - GI/Abdominal Exam GI & Abdominal Exam: Soft, Diminished Bowel Sounds - Rectal Exam Rectal Exam: Deferred
--- NOTE | 2017-05-17 17:45 | CP.PCM.CON ---
History of Present Illness - History of Present Illness History of Present Illness: Vascular surgery consult note for Dr. Rudd Pt s & e at bedside. Pt is a 81M with PMH of CAD, CABG 5 years ago, presented the ED with UTI and AMS. Pt denies any complaints currently. Pt denies any headaches, vision changes , chest pain, palpitations, SOB, abdominal pain, vomiting, nausea, diarrhea, constipation, leg swelling, leg pain, dysuria, urinary frequency. Vascular surgery was consulted for bilateral carotid stenosis. PMH: CAD, scarlet fever PSH: CABG 5 years ago All: NKDA Meds: denies SH: denies tobacco, alcohol, or drug use. FM: F from [place] at 58. M at 77. Brother from [place] at 72. Review of Systems - Constitutional Constitutional: absent: Fever, Headache, Malaise - EENT Eyes: absent: Change in Vision - Cardiovascular Cardiovascular: absent: Chest Pain, Dyspnea, Lightheadedness, Palpitations, Pedal Edema - Respiratory Respiratory: absent: Dyspnea - Gastrointestinal Gastrointestinal: absent: Abdominal Pain, Constipation, Diarrhea, Nausea, Vomiting - Genitourinary Genitourinary: absent: Dysuria, Urinary Frequency Past Patient History - Past Medical History & Family History Past Medical History?: Yes - Past Social History Smoking Status: Never Smoked - CARDIAC Hx Cardiac Disorders: Yes (CAD, CABG) - MUSCULOSKELETAL/RHEUMATOLOGICAL Hx Falls: No - PSYCHIATRIC Hx Substance Use: No - SURGICAL HISTORY Hx Coronary Artery Bypass Graft: Yes Meds Allergies/Adverse Reactions: Allergies Allergy/AdvReac Type Severity Reaction Status Date / Time No Known Allergies Allergy Verified 05/14/17 13:33 - Medications Medications: Current Medications Aspirin (Ecotrin) 81 mg PO DAILY [facility] Last Admin: 05/17/17 10:32 Dose: 81 mg Clopidogrel Bisulfate (Plavix) 75 mg PO DAILY [facility] Last Admin: 05/17/17 10:31 Dose: 75 mg Enoxaparin Sodium (Lovenox) 40 mg SC DAILY [facility] Last Admin: 05/17/17 10:31 Dose: 40 mg Famotidine (Pepcid) 20 mg PO BID [facility] Last Admin: 05/17/17 17:24 Dose: 20 mg Ceftriaxone Sodium 1 gm/ (Sodium Chloride) 100 mls @ 100 mls/hr IVPB DAILY [facility] Last Admin: 05/17/17 10:31 Dose: 100 mls/hr Rosuvastatin Calcium (Crestor) 10 mg PO HS [facility] Last Admin: 05/16/17 21:55 Dose: 10 mg Physical Exam - Constitutional Appears: Well, No Acute Distress - Head Exam Head Exam: ATRAUMATIC, NORMAL INSPECTION, NORMOCEPHALIC - Eye Exam Eye Exam: Normal appearance - Respiratory Exam Respiratory Exam: Clear to Auscultation Bilateral, NORMAL BREATHING PATTERN - Cardiovascular Exam Cardiovascular Exam: REGULAR RHYTHM, +S1, +S2 - GI/Abdominal Exam GI & Abdominal Exam: Normal Bowel Sounds, Soft. absent: Tenderness - Extremities Exam Extremities exam: Positive for: normal inspection - Neurological Exam Neurological exam: Alert, Oriented x3 - Psychiatric Exam Psychiatric exam: Normal Affect, Normal Mood - Skin Skin Exam: Dry, Warm Results - Vital Signs Recent Vital Signs: Last Vital Signs Temp 97.9 F 05/17/17 15:58 Pulse 83 05/17/17 15:58 Resp 20 05/17/17 15:58 BP 154/68 H 05/17/17 15:58 Pulse Ox 95 05/17/17 15:58 - Labs Result Diagrams: 05/14/17 15:15 05/15/17 02:26 Assessment & Plan - Assessment and Plan (Free Text) Assessment: 81M with bilateral carotid stenosis Plan: Interventional neurology has already been consulted on this pt Per neurology notes, intervention is planned on saturday we will defer treatment to their team d/w Dr Blaire Swain, PGY3
[2017-05-18 09:05] LABS: BASO # 0.1 K/uL (0.0-0.2); BASO % 1.4 % (0.0-2.0); EOS # 0.2 K/uL (0.0-0.7); EOS % 2.6 % (0.0-4.0); HEMOGLOBIN 15.5 g/dL (12.0-18.0); LYMPH # 1.8 K/uL (1.0-4.3); LYMPH % 21.8 % (20.0-40.0); MEAN CORPUSCULAR HGB CONC 35.2 g/dL (33.0-37.0); MEAN PLATELET VOLUME 9.9 fL (7.2-11.7); MONO # 0.8 K/uL (0.0-0.8); NEUT # 5.3 K/uL (1.8-7.0); NEUT % 64.2 % (50.0-75.0); NRBC % 0.1 % (0.0-2.0); RBC 5.01 Mil/uL (4.40-5.90); RED CELL DISTRIBUTION WIDTH 13.5 % (11.5-14.5); WHITE BLOOD COUNT 8.2 K/uL (4.8-10.8)
[2017-05-18 09:38] LABS: ALBUMIN 4.2 g/dL (3.5-5.0); ALT/SGPT 19 U/L (21-72); AST/SGOT 28 U/L (17-59); BLOOD UREA NITROGEN 25 mg/dL (9-20); CALCIUM 9.6 mg/dl (8.6-10.4); GFR AFRICAN-AMERICAN > 60; GFR NON-AFRICAN AMERICAN > 60
[2017-05-18] MEDS: Enoxaparin 40 mg Syringe SC SCH (09:41)
--- NOTE | 2017-05-18 11:25 | CP.PCM.PN ---
Subjective - Date & Time of Evaluation Date of Evaluation: 05/18/17 Time of Evaluation: 11:22 - Subjective Subjective: Vasc Sx: Dr Rudd Pt S&E. NAEO. No return of symptoms. On schedule for carotid stent with interventional neuro. Agree with plan No intervention planned from our team. Please reconsult as necessary d/w Dr Rudd Objective - Vital Signs/Intake and Output Vital Signs (last 24 hours): Temp Pulse Resp BP Pulse Ox 97.7 F 92 H 20 163/75 H 95 05/18/17 07:00 05/18/17 07:00 05/18/17 07:00 05/18/17 07:00 05/18/17 07:00 Intake and Output: 05/18/17 05/18/17 06:59 18:59 Intake Total 100 Balance 100 - Medications Medications: Current Medications Aspirin (Ecotrin) 81 mg PO DAILY [facility] Last Admin: 05/18/17 09:41 Dose: 81 mg Clopidogrel Bisulfate (Plavix) 75 mg PO DAILY [facility] Last Admin: 05/18/17 09:41 Dose: 75 mg Enoxaparin Sodium (Lovenox) 40 mg SC DAILY [facility] Last Admin: 05/18/17 09:41 Dose: 40 mg Famotidine (Pepcid) 20 mg PO BID [facility] Last Admin: 05/18/17 09:41 Dose: 20 mg Ceftriaxone Sodium 1 gm/ (Sodium Chloride) 100 mls @ 100 mls/hr IVPB DAILY [facility] Last Admin: 05/18/17 10:23 Dose: 100 mls/hr Rosuvastatin Calcium (Crestor) 10 mg PO HS [facility] Last Admin: 05/17/17 21:22 Dose: 10 mg - Labs Labs: 05/18/17 08:51 05/18/17 08:51 - Constitutional Appears: Non-toxic, No Acute Distress - ENT Exam ENT Exam: Mucous Membranes Moist - Respiratory Exam Respiratory Exam: absent: Accessory Muscle Use, Respiratory Distress - Cardiovascular Exam Cardiovascular Exam: REGULAR RHYTHM. absent: Tachycardia - GI/Abdominal Exam GI & Abdominal Exam: Soft. absent: Distended, Tenderness
--- NOTE | 2017-05-18 19:28 | CP.PCM.PN ---
Subjective - Date & Time of Evaluation Date of Evaluation: 05/18/17 Time of Evaluation: 09:00 - Subjective Subjective: clinically same Objective - Vital Signs/Intake and Output Vital Signs (last 24 hours): Temp Pulse Resp BP Pulse Ox 98.2 F 106 H 20 170/77 H 96 05/18/17 15:00 05/18/17 19:01 05/18/17 15:00 05/18/17 19:01 05/18/17 15:00 Intake and Output: 05/18/17 05/19/17 18:59 06:59 Intake Total 630 Balance 630 - Medications Medications: Current Medications Amlodipine Besylate (Norvasc) 5 mg PO DAILY [facility] Last Admin: 05/18/17 18:59 Dose: 5 mg Aspirin (Ecotrin) 81 mg PO DAILY [facility] Last Admin: 05/18/17 09:41 Dose: 81 mg Clopidogrel Bisulfate (Plavix) 75 mg PO DAILY [facility] Last Admin: 05/18/17 09:41 Dose: 75 mg Enoxaparin Sodium (Lovenox) 40 mg SC DAILY [facility] Last Admin: 05/18/17 09:41 Dose: 40 mg Famotidine (Pepcid) 20 mg PO BID [facility] Last Admin: 05/18/17 18:59 Dose: 20 mg Ceftriaxone Sodium 1 gm/ (Sodium Chloride) 100 mls @ 100 mls/hr IVPB DAILY [facility] Last Admin: 05/18/17 10:23 Dose: 100 mls/hr Rosuvastatin Calcium (Crestor) 10 mg PO HS [facility] Last Admin: 05/17/17 21:22 Dose: 10 mg - Labs Labs: 05/18/17 08:51 05/18/17 08:51 Assessment and Plan - Assessment and Plan (Free Text) Plan: Patient remains confused Status post neurologist MRI done on 228 which revealed no evidence of intracranial hemorrhage Discussed with the son Patient is for possible rehab Patient encouraged to eat
[2017-05-19 08:15] LABS: BASO # 0.1 K/uL (0.0-0.2); BASO % 1.3 % (0.0-2.0); EOS # 0.2 K/uL (0.0-0.7); EOS % 2.4 % (0.0-4.0); HEMOGLOBIN 14.7 g/dL (12.0-18.0); LYMPH # 1.1 K/uL (1.0-4.3); LYMPH % 14.2 % (20.0-40.0); MEAN CELL VOLUME 87.1 fL (80.0-94.0); MEAN CORPUSCULAR HEMOGLOBIN 30.8 pg (27.0-31.0); MEAN CORPUSCULAR HGB CONC 35.4 g/dL (33.0-37.0); MEAN PLATELET VOLUME 9.6 fL (7.2-11.7); MONO # 0.7 K/uL (0.0-0.8); MONO % 9.3 % (0.0-10.0); NEUT # 5.6 K/uL (1.8-7.0); NEUT % 72.8 % (50.0-75.0); RBC 4.77 Mil/uL (4.40-5.90); RED CELL DISTRIBUTION WIDTH 13.6 % (11.5-14.5); WHITE BLOOD COUNT 7.7 K/uL (4.8-10.8)
[2017-05-19 08:25] LABS: ALBUMIN 4.1 g/dL (3.5-5.0); ALT/SGPT 13 U/L (21-72); AST/SGOT 23 U/L (17-59); BLOOD UREA NITROGEN 28 mg/dL (9-20); CALCIUM 9.4 mg/dl (8.6-10.4); GFR AFRICAN-AMERICAN > 60; GFR NON-AFRICAN AMERICAN > 60
[2017-05-19] MEDS: Enoxaparin 40 mg Syringe SC SCH (10:24)
--- NOTE | 2017-05-19 15:58 | CP.PCM.PN ---
Subjective - Date & Time of Evaluation Date of Evaluation: 05/19/17 Time of Evaluation: 09:30 - Subjective Subjective: clinically same Objective - Vital Signs/Intake and Output Vital Signs (last 24 hours): Temp Pulse Resp BP Pulse Ox 98.5 F 91 H 20 101/49 L 96 05/19/17 15:29 05/19/17 15:29 05/19/17 15:29 05/19/17 15:29 05/19/17 15:29 Intake and Output: 05/19/17 05/19/17 06:59 18:59 Intake Total 500 640 Balance 500 640 - Medications Medications: Current Medications Amlodipine Besylate (Norvasc) 5 mg PO DAILY [facility] Last Admin: 05/19/17 10:25 Dose: Not Given Aspirin (Ecotrin) 81 mg PO DAILY [facility] Last Admin: 05/19/17 10:24 Dose: 81 mg Clopidogrel Bisulfate (Plavix) 75 mg PO DAILY [facility] Last Admin: 05/19/17 10:24 Dose: 75 mg Enoxaparin Sodium (Lovenox) 40 mg SC DAILY [facility] Last Admin: 05/19/17 10:24 Dose: 40 mg Famotidine (Pepcid) 20 mg PO BID [facility] Last Admin: 05/19/17 10:24 Dose: 20 mg Ceftriaxone Sodium 1 gm/ (Sodium Chloride) 100 mls @ 100 mls/hr IVPB DAILY [facility] Last Admin: 05/19/17 10:24 Dose: 100 mls/hr Rosuvastatin Calcium (Crestor) 10 mg PO HS [facility] Last Admin: 05/18/17 21:45 Dose: 10 mg - Labs Labs: 05/19/17 07:51 05/19/17 07:51 - Constitutional Appears: Well - Head Exam Head Exam: ATRAUMATIC, NORMAL INSPECTION, NORMOCEPHALIC - Eye Exam Eye Exam: EOMI, Normal appearance, PERRL Pupil Exam: NORMAL ACCOMODATION, PERRL - ENT Exam ENT Exam: Mucous Membranes Moist, Normal Exam - Neck Exam Neck Exam: Full ROM, Normal Inspection. absent: Lymphadenopathy - Respiratory Exam Respiratory Exam: Decreased Breath Sounds - Cardiovascular Exam Cardiovascular Exam: REGULAR RHYTHM, +S1, +S2 - GI/Abdominal Exam GI & Abdominal Exam: Soft, Diminished Bowel Sounds - Rectal Exam Rectal Exam: Deferred Assessment and Plan - Assessment and Plan (Free Text) Plan: Awaiting transfer to rehab Continue ceftriaxone Continue as ordered Patient is still remains demented Follow-up with the product safety consultant
[2017-05-20] MEDS: Enoxaparin 40 mg Syringe SC SCH (11:00)
--- NOTE | 2017-05-20 14:52 | CP.PCM.PN ---
Subjective - Date & Time of Evaluation Date of Evaluation: 05/20/17 Time of Evaluation: 14:03 - Subjective Subjective: The patient is an 81 year old male with PMH sig for CAD s/p CABG 5 years ago initially admitted to the hospital for a UTI with AMS that has resolved. Initial presentation included aphasia and right facial droop that has resolved. CTA showed bilateral carotid stenosis, with severe, string like occlusion on the left. Consulted for treatment of this symptomatic left ICA stenosis Objective - Vital Signs/Intake and Output Vital Signs (last 24 hours): Temp Pulse Resp BP Pulse Ox 97.9 F 105 H 20 152/75 H 98 05/20/17 08:30 05/20/17 09:47 05/20/17 08:30 05/20/17 09:47 05/20/17 14:03 Intake and Output: 05/20/17 05/20/17 06:59 18:59 Intake Total 500 Balance 500 - Medications Medications: Current Medications Amlodipine Besylate (Norvasc) 5 mg PO DAILY [facility] Last Admin: 05/20/17 11:00 Dose: 5 mg Aspirin (Ecotrin) 81 mg PO DAILY [facility] Last Admin: 05/20/17 11:00 Dose: 81 mg Clopidogrel Bisulfate (Plavix) 75 mg PO DAILY [facility] Last Admin: 05/20/17 11:00 Dose: 75 mg Enoxaparin Sodium (Lovenox) 40 mg SC DAILY [facility] Last Admin: 05/20/17 11:00 Dose: 40 mg Famotidine (Pepcid) 20 mg PO BID [facility] Last Admin: 05/20/17 11:00 Dose: 20 mg Rosuvastatin Calcium (Crestor) 10 mg PO HS [facility] Last Admin: 05/19/17 21:30 Dose: 10 mg - Labs Labs: 05/19/17 07:51 05/19/17 07:51 - Constitutional Appears: Well - Neurological Exam Neurological Exam: Alert Additional comments: Moving all extremites, in bed, conversive, cannot recall exact symptoms or what brought him to the hospital Assessment and Plan - Assessment and Plan (Free Text) Assessment: 81 year old male with high grade, near critical stenosis of the left carotid artery. While his symptoms of aphasia and right facial seen in the ER could be related to his enchapalopathy, we cannot rule out focal left hemispheric ischemia. Further, his severe caortid stenosis on this side would suggest that this is indeed a symptomatic lesion. Plan: 1-The patient has been on ASA and Plavix which are required for Carotid artery Agioplasty and Stenting ([place]). The patient is high risk and I believe this modality is most approriate for him to revascularize the carotid. 2-Will need a cardiology consult for clearance for Carotid Artery Angioplasty and Stenting. 3-Will need to obtain consent from family as the patient is confused
--- NOTE | 2017-05-20 19:37 | CP.PCM.PN ---
Subjective - Date & Time of Evaluation Date of Evaluation: 05/20/17 Time of Evaluation: 11:50 Objective - Vital Signs/Intake and Output Vital Signs (last 24 hours): Temp Pulse Resp BP Pulse Ox 97.3 F L 85 20 133/66 98 05/20/17 14:00 05/20/17 14:00 05/20/17 14:00 05/20/17 14:00 05/20/17 14:03 Intake and Output: 05/20/17 05/21/17 18:59 06:59 Intake Total 400 Balance 400 - Medications Medications: Current Medications Amlodipine Besylate (Norvasc) 5 mg PO DAILY [facility] Last Admin: 05/20/17 11:00 Dose: 5 mg Aspirin (Ecotrin) 81 mg PO DAILY [facility] Last Admin: 05/20/17 11:00 Dose: 81 mg Clopidogrel Bisulfate (Plavix) 75 mg PO DAILY [facility] Last Admin: 05/20/17 11:00 Dose: 75 mg Enoxaparin Sodium (Lovenox) 40 mg SC DAILY [facility] Last Admin: 05/20/17 11:00 Dose: 40 mg Famotidine (Pepcid) 20 mg PO BID [facility] Last Admin: 05/20/17 18:58 Dose: 20 mg Rosuvastatin Calcium (Crestor) 10 mg PO HS [facility] Last Admin: 05/19/17 21:30 Dose: 10 mg - Labs Labs: 05/19/17 07:51 05/19/17 07:51
[2017-05-21] MEDS: Enoxaparin 40 mg Syringe SC SCH (10:13)
--- NOTE | 2017-05-21 11:29 | CP.PCM.PN ---
Subjective - Date & Time of Evaluation Date of Evaluation: 05/21/17 Time of Evaluation: 10:00 - Subjective Subjective: Neurology progress note for Dr. White Patient seen and examined at bedside. Patient states that he has no complaints at this time. Patient states that he prefers being out of bed to chair. No acute events overnight. Objective - Vital Signs/Intake and Output Vital Signs (last 24 hours): Temp Pulse Resp BP Pulse Ox 97.7 F 92 H 20 147/65 96 05/21/17 08:43 05/21/17 10:14 05/21/17 08:43 05/21/17 10:14 05/21/17 08:43 - Medications Medications: Current Medications Amlodipine Besylate (Norvasc) 5 mg PO DAILY [facility] Last Admin: 05/21/17 10:12 Dose: 5 mg Aspirin (Ecotrin) 81 mg PO DAILY [facility] Last Admin: 05/21/17 10:13 Dose: 81 mg Clopidogrel Bisulfate (Plavix) 75 mg PO DAILY [facility] Last Admin: 05/21/17 10:13 Dose: 75 mg Enoxaparin Sodium (Lovenox) 40 mg SC DAILY [facility] Last Admin: 05/21/17 10:13 Dose: 40 mg Famotidine (Pepcid) 20 mg PO BID [facility] Last Admin: 05/21/17 10:12 Dose: 20 mg Rosuvastatin Calcium (Crestor) 10 mg PO HS [facility] Last Admin: 05/20/17 21:14 Dose: 10 mg - Labs Labs: 05/19/17 07:51 05/19/17 07:51 - Additional Findings Additional findings: - Constitutional Appears: No Acute Distress - Head Exam Head Exam: ATRAUMATIC, NORMOCEPHALIC - Eye Exam Eye Exam: EOMI, Normal appearance - ENT Exam ENT Exam: Mucous Membranes Moist - Respiratory Exam Respiratory Exam: Clear to Ausculation Bilateral. absent: Rales, Rhonchi, Wheezes - Cardiovascular Exam Cardiovascular Exam: REGULAR RHYTHM, +S1, +S2 - GI/Abdominal Exam GI & Abdominal Exam: Soft, Normal Bowel Sounds. absent: Tenderness - Extremities Exam Extremities Exam: absent: Pedal Edema - Neurological Exam Neurological Exam: Alert, Awake Additional comments: Oriented to person and place. Believes that the year is 1982, but also states that Alvin is the president. Patient is very forgetful having forgotten encounter with resident earlier in the morning. Muscle strength 5/5 in all 4 extremities. Sensations to light touch intact in all 4 extremities. Deep tendon reflexes 1/4 in all 4 extremities. - Psychiatric Exam Psychiatric exam: Normal Affect, Normal Mood - Skin Skin Exam: Dry, Warm Assessment and Plan - Assessment and Plan (Free Text) Assessment: This is an 81 year old male with PMHx CAD s/p CABG 5 years ago who was admitted to the hospital for UTI. Neurology consulted for altered mental status. At this time he is not altered. Patient likely had an episode of toxic metabolic encephalopathy from the UTI that is now resolving because its source is being treated. However, we cannot exclude the possibility of seizures as a cause just yet. Patient may have had a TIA since he was found at home lethargic and covered in feces. Plan: 1. Altered Mental Status Likely toxic metabolic encephalopathy from UTI versus TIA versus seizures Medical management for treatment of UTI Maintain adequate hydration Maintain normotension Maintain euglycemic state CT Head reveals old left [employer] territory infarct. Per Dr. Gray, also see old right cerebellum, and anterior circulation territory lesions. Old infarcts likely from atherosclerotic disease Head CTA report: * Critically hemodynamically significant stenosis in the proximal left internal carotid artery with narrow collapsed thread-like distal internal carotid artery * asymmetric severely narrow left intracranial internal carotid artery * asymmetric narrowing of left MCA * Severe hemodynamically significant approximately 76% stenosis in the right proximal internal carotid artery * Patent vertebral arteries with left side dominant Carotid duplex preliminary report shows significant stenosis on the left and moderate on the right MRI w. & w.o. contrast reiterated old infarcts. No new acute infarcts seen. 2. Bilateral Carotid Disease with the possibility of an induced TIA as a result Due to the bilateral carotid disease, patient will need to be on dual anti- platelet therapy and statin. Continue ASA 81 mg, Plavix 75 mg, and Crestor [address] Ramirez consulted, help appreciated telecommunications consultant has deemed the patient stable for procedure Per Dr. Bangura, needs family consent before procedure. Patient's son at bedside was notified and has left his phone number with the nursing staff. Patient seen and discussed with Dr. White.
--- NOTE | 2017-05-21 11:52 | CP.PCM.CON ---
History of Present Illness - History of Present Illness History of Present Illness: CC: Preop Clearence HPI: 81 year old man with following chronic medical conditions 1. Left ICA occlusions 2. ASHD s/p CABG 2011 3. HTN He presented to [facility] for left sided abdominal pain. He was reported as per neurology consult that he had aphasia and AMS. Patient is denying any focal neuro deficits. He is reporting he can perform >4 METS daily prior to his admission. Denies angina or CHF. Review of Systems - Review of Systems All systems: reviewed and no additional remarkable complaints except - Psychiatric Psychiatric: As Per HPI, Memory Loss Past Patient History - Past Medical History & Family History Past Medical History?: Yes - Past Social History Smoking Status: Never Smoked - CARDIAC Hx Cardiac Disorders: Yes (CAD, CABG) - MUSCULOSKELETAL/RHEUMATOLOGICAL Hx Falls: No - PSYCHIATRIC Hx Substance Use: No - SURGICAL HISTORY Hx Coronary Artery Bypass Graft: Yes Meds Allergies/Adverse Reactions: Allergies Allergy/AdvReac Type Severity Reaction Status Date / Time No Known Allergies Allergy Verified 05/14/17 13:33 - Medications Medications: Current Medications Amlodipine Besylate (Norvasc) 5 mg PO DAILY [facility] Last Admin: 05/21/17 10:12 Dose: 5 mg Aspirin (Ecotrin) 81 mg PO DAILY [facility] Last Admin: 05/21/17 10:13 Dose: 81 mg Clopidogrel Bisulfate (Plavix) 75 mg PO DAILY [facility] Last Admin: 05/21/17 10:13 Dose: 75 mg Enoxaparin Sodium (Lovenox) 40 mg SC DAILY [facility] Last Admin: 05/21/17 10:13 Dose: 40 mg Famotidine (Pepcid) 20 mg PO BID [facility] Last Admin: 05/21/17 10:12 Dose: 20 mg Rosuvastatin Calcium (Crestor) 10 mg PO HS [facility] Last Admin: 05/20/17 21:14 Dose: 10 mg Physical Exam - Constitutional Appears: Well, Unkempt, Older Than Stated Age - Head Exam Head Exam: ATRAUMATIC, NORMAL INSPECTION - Eye Exam Eye Exam: PERRL. absent: Scleral icterus - ENT Exam ENT Exam: Mucous Membranes Moist (Poor dentition ) - Neck Exam Neck exam: Positive for: Full Rom. Negative for: Lymphadenopathy - Respiratory Exam Respiratory Exam: Clear to Auscultation Bilateral, NORMAL BREATHING PATTERN - Cardiovascular Exam Cardiovascular Exam: REGULAR RHYTHM, RRR, +S1, +S2 (Right sided carotid bruit ) , +S4. absent: JVD - GI/Abdominal Exam GI & Abdominal Exam: Normal Bowel Sounds. absent: Organomegaly - Extremities Exam Extremities exam: Positive for: full ROM. Negative for: calf tenderness, pedal edema - Neurological Exam Neurological exam: CN II-XII Intact, Oriented x3 - Psychiatric Exam Psychiatric exam: Normal Affect, Normal Mood Results - Vital Signs Recent Vital Signs: Last Vital Signs Temp 97.7 F 05/21/17 08:43 Pulse 92 H 05/21/17 10:14 Resp 20 05/21/17 08:43 BP 147/65 05/21/17 10:14 Pulse Ox 96 05/21/17 08:43 - Labs Result Diagrams: 05/22/17 07:55 05/22/17 07:55 - EKG Data EKG Interpreted by: Myself EKG shows normal: Sinus rhythm - Imaging and Cardiology Chest x-ray Status: Image reviewed by me (No infiltrates or effusion s) Assessment & Plan - Assessment and Plan (Free Text) Assessment: Carotid Duplex images viewed by me: Occlusion of the Left ICA, 50-79% RIGHT ICA stenosis MRI shows no acute infarct, but chronic lesions Impression: 81 year old man with severe cerebrovascular disease with AMS, neurology wishes to re vascularize. High dose statin and dual anti platelet. Aggressive cardiac risk factor management Preop Clearence patient perform >4 METS daily, so he is acceptable risk for endovascular procedure he does not require any futher cardiac work up. ASHD statin and DAPT AMS - need more information if this is delirum or dementia, now s/p UTI therapy HTN is chronic and stable on norvasc
--- NOTE | 2017-05-21 19:59 | CP.PCM.PN ---
Subjective - Date & Time of Evaluation Date of Evaluation: 05/21/17 Objective - Vital Signs/Intake and Output Vital Signs (last 24 hours): Temp Pulse Resp BP Pulse Ox 98.1 F 91 H 18 159/70 H 97 05/21/17 15:50 05/21/17 15:50 05/21/17 15:50 05/21/17 15:50 05/21/17 15:50 Intake and Output: 05/21/17 05/22/17 18:59 06:59 Intake Total 400 Balance 400 - Medications Medications: Current Medications Amlodipine Besylate (Norvasc) 5 mg PO DAILY [facility] Last Admin: 05/21/17 10:12 Dose: 5 mg Aspirin (Ecotrin) 81 mg PO DAILY [facility] Last Admin: 05/21/17 10:13 Dose: 81 mg Clopidogrel Bisulfate (Plavix) 75 mg PO DAILY [facility] Last Admin: 05/21/17 10:13 Dose: 75 mg Enoxaparin Sodium (Lovenox) 40 mg SC DAILY [facility] Last Admin: 05/21/17 10:13 Dose: 40 mg Famotidine (Pepcid) 20 mg PO BID [facility] Last Admin: 05/21/17 17:27 Dose: 20 mg Rosuvastatin Calcium (Crestor) 10 mg PO HS [facility] Last Admin: 05/20/17 21:14 Dose: 10 mg - Labs Labs: 05/19/17 07:51 05/19/17 07:51 Assessment and Plan - Assessment and Plan (Free Text) Plan: Continue Lovenox continue aspirin continue Shanae CBC CMP is acceptable Will discuss with the son as patient is very forgetful although patient has a stenosis patient has a history of CABG sometime ago patient still has a old infarct on the CAT scan Discuss with the neurology and the family for a further carotid endarterectomy versus some other carotid procedure followupiwth neuro follow up with cardio lesly same
[2017-05-21 23:29] VITALS: RESP 20
[2017-05-22 08:05] LABS: BASO # 0.1 K/uL (0.0-0.2); EOS # 0.2 K/uL (0.0-0.7); HEMOGLOBIN 15.4 g/dL (12.0-18.0); LYMPH # 1.5 K/uL (1.0-4.3); LYMPH % 21.4 % (20.0-40.0); MEAN CELL VOLUME 88.5 fL (80.0-94.0); MEAN CORPUSCULAR HGB CONC 35.1 g/dL (33.0-37.0); MEAN PLATELET VOLUME 9.7 fL (7.2-11.7); MONO # 0.9 K/uL (0.0-0.8); MONO % 11.9 % (0.0-10.0); NEUT # 4.4 K/uL (1.8-7.0); NEUT % 61.7 % (50.0-75.0); NRBC % 0.1 % (0.0-2.0); RBC 4.96 Mil/uL (4.40-5.90); RED CELL DISTRIBUTION WIDTH 13.3 % (11.5-14.5); WHITE BLOOD COUNT 7.2 K/uL (4.8-10.8)
[2017-05-22 08:19] LABS: ALB/GLOB RATIO 1.2 (1.0-2.1); ALBUMIN 4.4 g/dL (3.5-5.0); ALT/SGPT 26 U/L (21-72); AST/SGOT 30 U/L (17-59); BLOOD UREA NITROGEN 28 mg/dL (9-20); CALCIUM 9.6 mg/dl (8.6-10.4); GFR AFRICAN-AMERICAN > 60; GFR NON-AFRICAN AMERICAN > 60
[2017-05-22] MEDS: Enoxaparin 40 mg Syringe SC SCH (10:16)
--- NOTE | 2017-05-22 11:08 | CP.PCM.PN ---
Subjective - Date & Time of Evaluation Date of Evaluation: 05/22/17 Time of Evaluation: 11:07 - Subjective Subjective: Events reviewed Objective - Vital Signs/Intake and Output Vital Signs (last 24 hours): Temp Pulse Resp BP Pulse Ox 97.6 F 83 20 145/61 97 05/22/17 08:10 05/22/17 08:10 05/22/17 08:10 05/22/17 08:10 05/22/17 08:10 - Medications Medications: Current Medications Amlodipine Besylate (Norvasc) 5 mg PO DAILY [facility] Last Admin: 05/22/17 10:16 Dose: 5 mg Aspirin (Ecotrin) 81 mg PO DAILY [facility] Last Admin: 05/22/17 10:16 Dose: 81 mg Clopidogrel Bisulfate (Plavix) 75 mg PO DAILY [facility] Last Admin: 05/22/17 10:16 Dose: 75 mg Famotidine (Pepcid) 20 mg PO BID [facility] Last Admin: 05/22/17 10:16 Dose: 20 mg Rosuvastatin Calcium (Crestor) 10 mg PO HS [facility] Last Admin: 05/21/17 21:33 Dose: 10 mg - Labs Labs: 05/22/17 07:55 05/22/17 07:55 - Constitutional Appears: Well, Non-toxic - Respiratory Exam Respiratory Exam: Clear to Ausculation Bilateral, NORMAL BREATHING PATTERN - Cardiovascular Exam Cardiovascular Exam: REGULAR RHYTHM, RRR, +S1, +S2. absent: JVD - GI/Abdominal Exam GI & Abdominal Exam: Normal Bowel Sounds. absent: Organomegaly Assessment and Plan - Assessment and Plan (Free Text) Assessment: Carotid Duplex images viewed by me: Occlusion of the Left ICA, 50-79% RIGHT ICA stenosis MRI shows no acute infarct, but chronic lesions Impression: 81 year old man with severe cerebrovascular disease with AMS, neurology wishes to re vascularize. High dose statin and dual anti platelet. Aggressive cardiac risk factor management Preop Clearence patient perform >4 METS daily, so he is acceptable risk for endovascular procedure he does not require any further cardiac work up. ASHD statin and DAPT AMS - delerium improving today, AAO x 3 HTN is chronic and stable on norvasc
--- NOTE | 2017-05-22 11:44 | CP.PCM.PN ---
Subjective - Date & Time of Evaluation Date of Evaluation: 05/22/17 Time of Evaluation: 11:41 - Subjective Subjective: Mr. Krueger was seen and examined at the bedside. He is alert, oriented to person and place, claims of time 1983. He denies any headache, dizziness, blurred vision, diplopia, nausea, or vomiting. He is able to follow simple commands. He remains on 1:1 sitter for patient safety. There was no untoward events overnight. Objective - Vital Signs/Intake and Output Vital Signs (last 24 hours): Temp Pulse Resp BP Pulse Ox 97.6 F 83 20 145/61 97 05/22/17 08:10 05/22/17 08:10 05/22/17 08:10 05/22/17 08:10 05/22/17 08:10 - Medications Medications: Current Medications Amlodipine Besylate (Norvasc) 5 mg PO DAILY [facility] Last Admin: 05/22/17 10:16 Dose: 5 mg Aspirin (Ecotrin) 81 mg PO DAILY [facility] Last Admin: 05/22/17 10:16 Dose: 81 mg Clopidogrel Bisulfate (Plavix) 75 mg PO DAILY [facility] Last Admin: 05/22/17 10:16 Dose: 75 mg Famotidine (Pepcid) 20 mg PO BID [facility] Last Admin: 05/22/17 10:16 Dose: 20 mg Rosuvastatin Calcium (Crestor) 10 mg PO HS [facility] Last Admin: 05/21/17 21:33 Dose: 10 mg - Labs Labs: 05/22/17 07:55 05/22/17 07:55 - Constitutional Appears: No Acute Distress - Head Exam Head Exam: NORMAL INSPECTION - Neurological Exam Neurological Exam: Alert, Awake Neuro motor strength exam: Left Upper Extremity: 5, Right Upper Extremity: 5, Left Lower Extremity: 5, Right Lower Extremity: 5 Additional comments: He is able to answer some questions appropriately and follow simple commands. Assessment and Plan (1) Altered mental status Assessment & Plan: Case discussed with Dr. White, continue all current medical regimen. Treat any underlying infection or electrolyte imbalances. Recommend maintaining adequate hydration, normotension, and euglycemic state Status: Acute (2) Carotid arterial disease Assessment & Plan: Case discussed with Dr. White, continue dual anti-platelet therapy and statin ( ASA 81 mg, Plavix 75 mg, and Crestor 10 mg). Recommend neurointerventional evaluation with plan for carotid angiogram with possible intervention pending family consent before procedure. Status: Acute
--- NOTE | 2017-05-22 18:25 | CP.PCM.PN ---
Subjective - Date & Time of Evaluation Date of Evaluation: 05/22/17 Objective - Vital Signs/Intake and Output Vital Signs (last 24 hours): Temp Pulse Resp BP Pulse Ox 97.6 F 91 H 20 126/65 96 05/22/17 15:00 05/22/17 15:00 05/22/17 15:00 05/22/17 15:00 05/22/17 15:00 - Medications Medications: Current Medications Amlodipine Besylate (Norvasc) 5 mg PO DAILY [facility] Last Admin: 05/22/17 10:16 Dose: 5 mg Aspirin (Ecotrin) 81 mg PO DAILY [facility] Last Admin: 05/22/17 10:16 Dose: 81 mg Clopidogrel Bisulfate (Plavix) 75 mg PO DAILY [facility] Last Admin: 05/22/17 10:16 Dose: 75 mg Famotidine (Pepcid) 20 mg PO BID [facility] Last Admin: 05/22/17 17:42 Dose: 20 mg Rosuvastatin Calcium (Crestor) 10 mg PO HS [facility] Last Admin: 05/21/17 21:33 Dose: 10 mg - Labs Labs: 05/22/17 07:55 05/22/17 07:55 Assessment and Plan - Assessment and Plan (Free Text) Plan: Follow-up with the vascular surgeon follow-up with the cardiology follow-up with the neurology follow-up with the medication as ordered Patient is demented but patient is walking and talking Continue as ordered We will talk to the Joseluis Trevino again
[2017-05-23 08:33] LABS: BASO # 0.1 K/uL (0.0-0.2); BASO % 1.3 % (0.0-2.0); EOS # 0.2 K/uL (0.0-0.7); EOS % 2.8 % (0.0-4.0); HEMOGLOBIN 14.8 g/dL (12.0-18.0); LYMPH # 1.4 K/uL (1.0-4.3); LYMPH % 20.8 % (20.0-40.0); MEAN CELL VOLUME 87.7 fL (80.0-94.0); MEAN CORPUSCULAR HEMOGLOBIN 31.2 pg (27.0-31.0); MEAN CORPUSCULAR HGB CONC 35.6 g/dL (33.0-37.0); MEAN PLATELET VOLUME 9.3 fL (7.2-11.7); MONO # 0.7 K/uL (0.0-0.8); NEUT # 4.3 K/uL (1.8-7.0); NEUT % 64.1 % (50.0-75.0); NRBC % 0.1 % (0.0-2.0); RBC 4.75 Mil/uL (4.40-5.90); RED CELL DISTRIBUTION WIDTH 13.3 % (11.5-14.5); WHITE BLOOD COUNT 6.7 K/uL (4.8-10.8)
[2017-05-23 08:59] LABS: ALB/GLOB RATIO 1.2 (1.0-2.1); ALBUMIN 4.1 g/dL (3.5-5.0); ALT/SGPT 19 U/L (21-72); AST/SGOT 31 U/L (17-59); BLOOD UREA NITROGEN 28 mg/dL (9-20); CALCIUM 9.1 mg/dl (8.6-10.4); GFR AFRICAN-AMERICAN > 60; GFR NON-AFRICAN AMERICAN > 60
--- NOTE | 2017-05-23 11:29 | CP.PCM.PN ---
Subjective - Date & Time of Evaluation Date of Evaluation: 05/23/17 Time of Evaluation: 10:30 - Subjective Subjective: Neurology progress note for Dr. White Patient seen and examined at bedside. Patient denies any acute complaints at this time. No acute events overnight. Objective - Vital Signs/Intake and Output Vital Signs (last 24 hours): Temp Pulse Resp BP Pulse Ox 97.8 F 87 20 147/67 98 05/23/17 08:46 05/23/17 08:46 05/23/17 08:46 05/23/17 08:46 05/23/17 08:46 - Medications Medications: Current Medications Amlodipine Besylate (Norvasc) 5 mg PO DAILY [facility] Last Admin: 05/23/17 10:36 Dose: 5 mg Aspirin (Ecotrin) 81 mg PO DAILY [facility] Last Admin: 05/23/17 10:37 Dose: 81 mg Clopidogrel Bisulfate (Plavix) 75 mg PO DAILY [facility] Last Admin: 05/23/17 10:36 Dose: 75 mg Famotidine (Pepcid) 20 mg PO BID [facility] Last Admin: 05/23/17 10:36 Dose: 20 mg Rosuvastatin Calcium (Crestor) 10 mg PO HS [facility] Last Admin: 05/22/17 22:00 Dose: 10 mg - Labs Labs: 05/23/17 08:19 05/23/17 08:19 - Additional Findings Additional findings: - Constitutional Appears: No Acute Distress - Head Exam Head Exam: ATRAUMATIC, NORMOCEPHALIC - Eye Exam Eye Exam: EOMI, Normal appearance - ENT Exam ENT Exam: Mucous Membranes Moist - Respiratory Exam Respiratory Exam: Clear to Auscultation Bilateral. absent: Rales, Rhonchi, Wheezes - Cardiovascular Exam Cardiovascular Exam: REGULAR RHYTHM, +S1, +S2 - GI/Abdominal Exam GI & Abdominal Exam: Soft, Normal Bowel Sounds. absent: Tenderness - Extremities Exam Extremities Exam: absent: Pedal Edema - Neurological Exam Neurological Exam: Alert, Awake Additional comments: Oriented to person and place. Believes that the year is 1982, but also states that Alvin is the president. Patient is very forgetful having forgotten encounter with resident earlier in the morning. Muscle strength 5/5 in all 4 extremities. Sensations to light touch intact in all 4 extremities. Deep tendon reflexes 1/4 in all 4 extremities. - Psychiatric Exam Psychiatric exam: Normal Affect, Normal Mood - Skin Skin Exam: Dry, Warm Assessment and Plan - Assessment and Plan (Free Text) Assessment: This is an 81 year old male with PMHx CAD s/p CABG 5 years ago who was admitted to the hospital for UTI. Neurology consulted for altered mental status. At this time he is not altered. Patient likely had an episode of toxic metabolic encephalopathy from the UTI that is now resolving because its source is being treated. However, we cannot exclude the possibility of seizures as a cause just yet. Patient may have had a TIA since he was found at home lethargic and covered in feces. Plan: 1. 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 Per Dr. Gray, also see old right cerebellum, and anterior circulation territory lesions. Old infarcts likely from atherosclerotic disease Head CTA report: * Critically hemodynamically significant stenosis in the proximal left internal carotid artery with narrow collapsed thread-like distal internal carotid artery * asymmetric severely narrow left intracranial internal carotid artery * asymmetric narrowing of left MCA * Severe hemodynamically significant approximately 76% stenosis in the right proximal internal carotid artery * Patent vertebral arteries with left side dominant Carotid duplex preliminary report shows significant stenosis on the left and moderate on the right MRI w. & w.o. contrast reiterated old infarcts. No new acute infarcts seen. 2. Bilateral Carotid Disease with the possibility of an induced TIA as a result Due to the bilateral carotid disease, patient will need to be on dual anti- platelet therapy and statin. Continue ASA 81 mg, Plavix 75 mg, and Crestor [address] Ramirez consulted, help appreciated foreign legal consultant has deemed the patient stable for procedure Per Dr. Bangura, needs family consent before procedure. Awaiting neurointerventional procedure
--- NOTE | 2017-05-23 16:22 | CP.PCM.PN ---
Subjective - Date & Time of Evaluation Date of Evaluation: 05/23/17 Time of Evaluation: 16:22 - Subjective Subjective: [place]ED[place] [facility] [place] SON AT THE BEDSIDE SIGN THE TRANSPORT FORM NO SIGH OF DISTRESS NOTED AT THIS TIME Objective - Vital Signs/Intake and Output Vital Signs (last 24 hours): Temp Pulse Resp BP Pulse Ox 100.2 F H 112 H 20 132/65 96 05/23/17 15:00 05/23/17 15:00 05/23/17 15:00 05/23/17 15:00 05/23/17 15:00 Intake and Output: 05/23/17 05/23/17 06:59 18:59 Intake Total 300 Balance 300 - Medications Medications: Current Medications Amlodipine Besylate (Norvasc) 5 mg PO DAILY [facility] Last Admin: 05/23/17 10:36 Dose: 5 mg Aspirin (Ecotrin) 81 mg PO DAILY [facility] Last Admin: 05/23/17 10:37 Dose: 81 mg Clopidogrel Bisulfate (Plavix) 75 mg PO DAILY [facility] Last Admin: 05/23/17 10:36 Dose: 75 mg Famotidine (Pepcid) 20 mg PO BID [facility] Last Admin: 05/23/17 10:36 Dose: 20 mg Rosuvastatin Calcium (Crestor) 10 mg PO HS [facility] Last Admin: 05/22/17 22:00 Dose: 10 mg - Labs Labs: 05/23/17 08:19 05/23/17 08:19
--- NOTE | 2017-05-23 22:33 | CP.PCM.PN ---
Subjective - Date & Time of Evaluation Date of Evaluation: 05/23/17 Objective - Vital Signs/Intake and Output Vital Signs (last 24 hours): Temp Pulse Resp BP Pulse Ox 100.2 F H 112 H 20 132/65 96 05/23/17 15:00 05/23/17 15:00 05/23/17 15:00 05/23/17 15:00 05/23/17 15:00 Intake and Output: 05/23/17 05/24/17 18:59 06:59 Intake Total 300 Balance 300 - Medications Medications: Current Medications Amlodipine Besylate (Norvasc) 5 mg PO DAILY [facility] Last Admin: 05/23/17 10:36 Dose: 5 mg Aspirin (Ecotrin) 81 mg PO DAILY [facility] Last Admin: 05/23/17 10:37 Dose: 81 mg Clopidogrel Bisulfate (Plavix) 75 mg PO DAILY [facility] Last Admin: 05/23/17 10:36 Dose: 75 mg Famotidine (Pepcid) 20 mg PO BID [facility] Last Admin: 05/23/17 17:51 Dose: 20 mg Rosuvastatin Calcium (Crestor) 10 mg PO HS [facility] Last Admin: 05/23/17 21:21 Dose: 10 mg - Labs Labs: 05/23/17 08:19 05/23/17 08:19 Assessment and Plan - Assessment and Plan (Free Text) Plan: There are linear patient agreed to do the carotid surgery patient to be transferred to be on hospital agreed cardiology clearance to be given by Dr. Harvey I have already also discussed the case with Dr. Harvey 2 days ago continue same follow-up with the cardiac follow-up with the new
[2017-05-24 07:24] LABS: BASO # 0.1 K/uL (0.0-0.2); BASO % 1.2 % (0.0-2.0); EOS # 0.2 K/uL (0.0-0.7); EOS % 2.3 % (0.0-4.0); LYMPH # 1.1 K/uL (1.0-4.3); LYMPH % 12.6 % (20.0-40.0); MEAN CELL VOLUME 87.3 fL (80.0-94.0); MEAN CORPUSCULAR HEMOGLOBIN 30.2 pg (27.0-31.0); MEAN CORPUSCULAR HGB CONC 34.6 g/dL (33.0-37.0); MEAN PLATELET VOLUME 9.8 fL (7.2-11.7); MONO % 11.1 % (0.0-10.0); NEUT # 6.4 K/uL (1.8-7.0); NEUT % 72.8 % (50.0-75.0); NRBC % 0.1 % (0.0-2.0); RBC 4.64 Mil/uL (4.40-5.90); WHITE BLOOD COUNT 8.7 K/uL (4.8-10.8)
[2017-05-24 07:34] VITALS: BP 124/61; PULSE 81; TEMP 97.9; O2SAT 96
[2017-05-24 07:41] LABS: ALB/GLOB RATIO 1.1 (1.0-2.1); ALBUMIN 3.9 g/dL (3.5-5.0); ALT/SGPT 27 U/L (21-72); AST/SGOT 22 U/L (17-59); BLOOD UREA NITROGEN 21 mg/dL (9-20); CALCIUM 9.1 mg/dl (8.6-10.4); GFR AFRICAN-AMERICAN > 60; GFR NON-AFRICAN AMERICAN > 60
--- NOTE | 2017-05-24 10:38 | CP.PCM.PN ---
Subjective - Date & Time of Evaluation Date of Evaluation: 05/24/17 Time of Evaluation: 10:00 - Subjective Subjective: Neurology progress note for Dr. White Patient seen and examined. Patient with no acute complaints at this time. Awaiting transfer [place] [facility] [place]. Objective - Vital Signs/Intake and Output Vital Signs (last 24 hours): Temp Pulse Resp BP Pulse Ox 97.9 F 81 20 124/61 96 05/24/17 07:32 05/24/17 07:32 05/24/17 07:32 05/24/17 07:32 05/24/17 07:32 - Medications Medications: Current Medications Amlodipine Besylate (Norvasc) 5 mg PO DAILY [facility] Last Admin: 05/23/17 10:36 Dose: 5 mg Aspirin (Ecotrin) 81 mg PO DAILY [facility] Last Admin: 05/23/17 10:37 Dose: 81 mg Clopidogrel Bisulfate (Plavix) 75 mg PO DAILY [facility] Last Admin: 05/23/17 10:36 Dose: 75 mg Famotidine (Pepcid) 20 mg PO BID [facility] Last Admin: 05/23/17 17:51 Dose: 20 mg Rosuvastatin Calcium (Crestor) 10 mg PO HS [facility] Last Admin: 05/23/17 21:21 Dose: 10 mg - Labs Labs: 05/24/17 07:02 05/24/17 07:02 - Additional Findings Additional findings: - Constitutional Appears: No Acute Distress - Head Exam Head Exam: ATRAUMATIC, NORMOCEPHALIC - Eye Exam Eye Exam: EOMI, Normal appearance - ENT Exam ENT Exam: Mucous Membranes Moist - Respiratory Exam Respiratory Exam: Clear to Auscultation Bilateral. absent: Rales, Rhonchi, Wheezes - Cardiovascular Exam Cardiovascular Exam: REGULAR RHYTHM, +S1, +S2 - GI/Abdominal Exam GI & Abdominal Exam: Soft, Normal Bowel Sounds. absent: Tenderness - Extremities Exam Extremities Exam: absent: Pedal Edema - Neurological Exam Neurological Exam: Alert, Awake Additional comments: Oriented to person and place. Believes that the year is 1982, but also states that Alvin is the president. Patient is very forgetful having forgotten encounter with resident earlier in the morning. Muscle strength 5/5 in all 4 extremities. Sensations to light touch intact in all 4 extremities. Deep tendon reflexes 1/4 in all 4 extremities. - Psychiatric Exam Psychiatric exam: Normal Affect, Normal Mood - Skin Skin Exam: Dry, Warm Assessment and Plan - Assessment and Plan (Free Text) Assessment: This is an 81 year old male with PMHx CAD s/p CABG 5 years ago who was admitted to the hospital for UTI. Neurology consulted for altered mental status. At this time he is not altered. Patient likely had an episode of toxic metabolic encephalopathy from the UTI that is now resolving because its source is being treated. However, we cannot exclude the possibility of seizures as a cause just yet. Patient may have had a TIA since he was found at home lethargic and covered in feces. Plan: 1. Altered Mental Status Likely toxic metabolic encephalopathy from UTI versus TIA versus seizures Medical management for treatment of UTI Maintain adequate hydration Maintain normotension Maintain euglycemic state CT Head reveals old left STOVE CLEANER territory infarct. Per Dr. Gray, also see old right cerebellum, and anterior circulation territory lesions. Old infarcts likely from atherosclerotic disease Head CTA report: * Critically hemodynamically significant stenosis in the proximal left internal carotid artery with narrow collapsed thread-like distal internal carotid artery * asymmetric severely narrow left intracranial internal carotid artery * asymmetric narrowing of left MCA * Severe hemodynamically significant approximately 76% stenosis in the right proximal internal carotid artery * Patent vertebral arteries with left side dominant Carotid duplex preliminary report shows significant stenosis on the left and moderate on the right MRI w. & w.o. contrast reiterated old infarcts. No new acute infarcts seen. 2. Bilateral Carotid Disease with the possibility of an induced TIA as a result Due to the bilateral carotid disease, patient will need to be on dual anti- platelet therapy and statin. Continue ASA 81 mg, Plavix 75 mg, and Crestor [address] Ramirez consulted, help appreciated automotive service consultant has deemed the patient stable for procedure Dr. Bangura has obtained family consent Patient is awaiting transfer to [facility] [place] for [place] Discussed with Dr. White
--- NOTE | 2017-05-24 11:23 | PCM.IRPREO ---
Pre Procedure Note - History Proposed Procedure: Left Carotid Artery Angioplasty and Stenting Pre-Op Diagnosis: Symptomatic left ICA stenosis - Previous Medical/Surgical History Cardiac: Hypertension, ASHD/CAD Neuro: TIA/CVA, Confusion - Pre Procedure Were any radiologic studies performed in the last 12 months: Yes List of radiologic studies performed: CT angiography of the head and neck Was medical management performed in the past 24 months: Yes List of medical management performed: The patient is now on Dual Antiplatlet therapy with ASA and Plavix. As well the patient is on a statin and on antihypertensives. Clinical indication for the procedure: The patient has symptomatic left internal caortid artey stenosis that has resulted in a non-diabling ischemic event in the left hemispere. revascularization is warrantec to decrease the risk of further stroke. Reccomend [place] as the patient is high risk medically. Have risks and benefits been explained to the patient: Yes Risks and benefits been explained to the patient: I had a discuassion with the patioent's Son : Jacob Krueger as to the risks and benefits. Specifically risk of infection, bleeding, groin site complications, nerve damage, stroke, ICH and . All questions answered. Have alternatives to surgery explained to the patient as applicable: Yes - Allergies Allergies: Allergies No Known Allergies Allergy (Verified 05/14/17 13:33) - Physical Exam Vital Signs: Vital Signs 05/24/17 07:32 Temperature 97.9 F Pulse Rate 81 Respiratory 20 Rate Blood Pressure 124/61 O2 Sat by Pulse 96 Oximetry Mental Status: Confused - Impression Impression: Symptomatic left internal carotid artery stenosis. Pt. Evaluated Today:Candidate for Anesthesia & Procedure: I will evaluate the patient when he arrives from [facility]. As per discussion with the staff and review of the medical record he is stable. - Date & Time Date: 05/24/17 Time: 11:22
--- NOTE | 2017-05-24 21:34 | CP.PCM.HP ---
History of Present Illness - History of Present Illness History of Present Illness: CC: s/p Diagnostic cerebral angiography HPI: Pt is an 81 year old male with PMH CAD s/p CABG who is transferred from [facility] after being admitted for UTI and altered mental status likely seconday to toxic metabolic encephalopathy. Patient was transferred to [facility] [place] from [facility] by Neuro metal fabricator apprentice Dr. Bynum ([phone]) for carotid stenting. During procedure the occlusion was found to extend caudally to the point to where the decision was to not place a stent and rather treat with dual anti-platelet therapy with plavix and aspirin. Patient was transferred to ICU for close monitoring after procedure. Patient noted to be somnolent and AAOx1, laying flat, aldana in place with yamil red blood in aldana blood, ROS unobtainable. Does not seem to be in any acute distress. PMHx: CAD, scarlet fever, HTN, Left ICA occlusions PSHx: CABG 5 years ago Allergies: NKDA Social: Denies tobacco, alcohol, drugs. Retired carpentry/danica worker. Lives with son. Family Hx: Heart disease runs in the family Present on Admission - Present on Admission Any Indicators Present on Admission: No Review of Systems - Review of Systems Review of Systems: Patient s/p procedure, AAOx1, responding to verbal and tacticle stimulus, unable to obtain ROS Past Patient History - Past Medical History & Family History Past Medical History?: Yes - Past Social History Smoking Status: Never Smoked - CARDIAC Hx Cardiac Disorders: Yes (CAD, CABG) - MUSCULOSKELETAL/RHEUMATOLOGICAL Hx Falls: No - PSYCHIATRIC Hx Substance Use: No - SURGICAL HISTORY Hx Coronary Artery Bypass Graft: Yes Meds Allergies/Adverse Reactions: Allergies Allergy/AdvReac Type Severity Reaction Status Date / Time No Known Allergies Allergy Verified 05/14/17 13:33 Physical Exam - Constitutional Appears: Non-toxic - Head Exam Head Exam: ATRAUMATIC, NORMAL INSPECTION, NORMOCEPHALIC - Eye Exam Eye Exam: EOMI, PERRL - ENT Exam ENT Exam: Mucous Membranes Moist Additional comments: Poor dentation - Respiratory Exam Respiratory Exam: Clear to Auscultation Bilateral, NORMAL BREATHING PATTERN. absent: Rales, Rhonchi, Wheezes - Cardiovascular Exam Cardiovascular Exam: REGULAR RHYTHM, +S1, +S2, Systolic Murmur - GI/Abdominal Exam GI & Abdominal Exam: Normal Bowel Sounds, Soft. absent: Firm, Guarding, Rigid, Tenderness - Extremities Exam Extremities exam: Positive for: normal inspection, pedal pulses present. Negative for: calf tenderness, pedal edema Additional comments: Groin site nontender to palpation, without erythema, swelling, or signs of bleeding - Neurological Exam Neurological exam: Alert Additional comments: AAOx1, responds to verbal stimuli, tactile stimulus - Skin Skin Exam: Dry, Intact, Warm Results - Vital Signs Recent Vital Signs: Last Vital Signs Temp 97.9 F 05/24/17 07:32 Pulse 81 05/24/17 07:32 Resp 20 05/24/17 07:32 BP 124/61 05/24/17 07:32 Pulse Ox 96 05/24/17 07:32 - Labs Result Diagrams: 05/24/17 07:02 05/24/17 07:02 Labs: Laboratory Results - last 24 hr 05/24/17 05/24/17 07:02 07:02 WBC 8.7 RBC 4.64 Hgb 14.0 Hct 40.5 MCV 87.3 MCH 30.2 MCHC 34.6 RDW 13.0 Plt Count 181 MPV 9.8 Neut % (Auto) 72.8 Lymph % (Auto) 12.6 L [place] % (Auto) 11.1 H Eos % (Auto) 2.3 Baso % (Auto) 1.2 Neut # (Auto) 6.4 Lymph # (Auto) 1.1 [place] # (Auto) 1.0 H Eos # (Auto) 0.2 Baso # (Auto) 0.1 Sodium 138 Potassium 4.1 Chloride 98 Carbon Dioxide 27 Anion Gap 16 BUN 21 H Creatinine 0.8 Est GFR ( Amer) > 60 Est GFR (Non-Af Amer) > 60 Random Glucose 162 H Calcium 9.1 Total Bilirubin 0.9 AST 22 ALT 27 Alkaline Phosphatase 60 Total Protein 7.5 Albumin 3.9 Globulin 3.7 Albumin/Globulin Ratio 1.1 Assessment & Plan - Assessment and Plan (Free Text) Assessment: 81 year old male with PMH of CAD s/p CABG who was oringally admitted to [facility] for AMS, UTI, abdominal pain found to have intracranial stenosis of the left internal carotid artery. Patient was transferred from [facility] to [facility] for diagnostic cerebral angiography without stenting due to significant intracranial ICA occlusion. Patient will be placed in ICU for close monitoring post procedure with plans for transfer back to [facility] in the AM. Plan: Neuro AAOx1, Responds to verbal and tactile stimulus, moves extremities spontaneously , visual tracking S/P diagnostic cerebral angiography without stenting Dr. Bynum consulted and following case - Pt will be transferred back to [facility] per Dr. Echols Continue plavix, aspirin, and statin - CT Head reveals old left CAMERA REPAIRMAN territory infarct. Per Dr. Gray, also see old right cerebellum, and anterior circulation territory lesions. Old infarcts likely from atherosclerotic disease - MRI w. & w.o. contrast reiterated old infarcts. No new acute infarcts seen - Carotid duplex showing 70-95% significant stenosis of the right extracranial carotid arteries, left internal carotid artery velocities suggestive of more distal occlusion Pulm Stable O2 2L NC with SaO2 goal >90% CXR reviewed Continue medical management Aspiration precautions Cardio Hemodynamically stable Aldana in place Norvasc 5mg ASA 81 Plavix 75 Crestor 10 BP stable, maintain Maintain MAP >65 GI Stable GI ppx Pepcid Renal Yamil Hematuria in aldana bag - Likely 2/2 traumatic aldana Replace electrolytes as needed Monitor renal fcn, fu BUN/Cr Strict I&Os ID Afebrile, no leukocytosis Stable Ancef s/p procedure Endo Maintain euglycemia with bg 140-180 GI/DVT ppx - Pepcid - Heparin Case and Plan discussed with attending, Dr. Ruano - Date & Time Date: 05/24/17 Time: 21:38
== END 2017-05-24 10:00 | disposition short-term general hospital (02) | DRG 689 ==
LOC: C.ER 11:28 → C.9E 16:57 → C.5S 22:36
PROVIDERS: ADMIT Internal Medicine Nephrology; ATTEND Internal Medicine Nephrology
DX: N39.0 Urinary tract infection, site not specified (principal); G92 Toxic encephalopathy; I66.02 Occlusion and stenosis of left middle cerebral artery; Z95.1 Presence of aortocoronary bypass graft; R47.01 Aphasia; I10 Essential (primary) hypertension; I25.10 Atherosclerotic heart disease of native coronary artery without angina pectoris; R62.7 Adult failure to thrive

== ENCOUNTER 2017-05-25 11:42 | Inpatient (IN) | payer MEDICARE ==
[2017-05-25 16:29] VITALS: BMI 21.0
--- NOTE | 2017-05-25 20:57 | CP.PCM.PN ---
Subjective - Date & Time of Evaluation Date of Evaluation: 05/25/17 Objective - Vital Signs/Intake and Output Vital Signs (last 24 hours): Temp Pulse Resp BP Pulse Ox 98.7 F 92 H 16 121/57 L 95 05/25/17 16:00 05/25/17 16:32 05/25/17 16:32 05/25/17 16:00 05/25/17 16:00 - Medications Medications: Current Medications Acetaminophen (Tylenol 325mg Tab) 650 mg PO Q6H PRN PRN Reason: Temperature Amlodipine Besylate (Norvasc) 5 mg PO DAILY [facility] Aspirin (Aspirin Chewable) 81 mg PO DAILY [facility] Clopidogrel Bisulfate (Plavix) 75 mg PO DAILY [facility] Famotidine (Pepcid) 20 mg PO HS [facility] Heparin Sodium (Porcine) (Heparin) 5,000 units SC Q8H [facility] Last Admin: 05/25/17 17:54 Dose: 5,000 units Rosuvastatin Calcium (Crestor) 5 mg PO HS [facility] Assessment and Plan - Assessment and Plan (Free Text) Plan: Patient is back from the [facility] Could not do the surgery as patient has a stenosis carotid stenosis high up We will discuss with the family Subacute rehab placement
[2017-05-26 08:13] LABS: BASO # 0.1 K/uL (0.0-0.2); BASO % 0.8 % (0.0-2.0); EOS # 0.3 K/uL (0.0-0.7); EOS % 2.6 % (0.0-4.0); HEMOGLOBIN 13.2 g/dL (12.0-18.0); LYMPH # 1.6 K/uL (1.0-4.3); LYMPH % 16.7 % (20.0-40.0); MEAN CELL VOLUME 87.7 fL (80.0-94.0); MEAN CORPUSCULAR HEMOGLOBIN 30.7 pg (27.0-31.0); MEAN CORPUSCULAR HGB CONC 35.1 g/dL (33.0-37.0); MEAN PLATELET VOLUME 9.7 fL (7.2-11.7); MONO # 1.1 K/uL (0.0-0.8); NEUT # 6.7 K/uL (1.8-7.0); NEUT % 68.9 % (50.0-75.0); RBC 4.3 Mil/uL (4.40-5.90); RED CELL DISTRIBUTION WIDTH 13.4 % (11.5-14.5); WHITE BLOOD COUNT 9.7 K/uL (4.8-10.8)
[2017-05-26 08:38] LABS: ALBUMIN 3.7 g/dL (3.5-5.0); ALT/SGPT 22 U/L (21-72); AST/SGOT 22 U/L (17-59); BLOOD UREA NITROGEN 27 mg/dL (9-20); CALCIUM 8.7 mg/dl (8.6-10.4); GFR AFRICAN-AMERICAN > 60; GFR NON-AFRICAN AMERICAN > 60
--- NOTE | 2017-05-26 16:11 | CP.PCM.PN ---
Subjective - Date & Time of Evaluation Date of Evaluation: 05/26/17 Time of Evaluation: 09:40 - Subjective Subjective: clinically same Objective - Vital Signs/Intake and Output Vital Signs (last 24 hours): Temp Pulse Resp BP Pulse Ox 98.3 F 97 H 18 151/72 H 97 05/26/17 15:05 05/26/17 15:05 05/26/17 15:05 05/26/17 15:05 05/26/17 15:05 Intake and Output: 05/26/17 05/26/17 06:59 18:59 Intake Total Balance - Medications Medications: Current Medications Acetaminophen (Tylenol 325mg Tab) 650 mg PO Q6H PRN PRN Reason: Temperature Amlodipine Besylate (Norvasc) 5 mg PO DAILY [facility] Last Admin: 05/26/17 09:57 Dose: 5 mg Aspirin (Aspirin Chewable) 81 mg PO DAILY [facility] Last Admin: 05/26/17 09:58 Dose: 81 mg Clopidogrel Bisulfate (Plavix) 75 mg PO DAILY [facility] Last Admin: 05/26/17 09:58 Dose: 75 mg Famotidine (Pepcid) 20 mg PO [facility] Last Admin: 05/25/17 21:38 Dose: 20 mg Heparin Sodium (Porcine) (Heparin) 5,000 units SC Q8H [facility] Last Admin: 05/26/17 09:58 Dose: 5,000 units Rosuvastatin Calcium (Crestor) 5 mg PO [facility] Last Admin: 05/25/17 21:38 Dose: 5 mg - Labs Labs: 05/26/17 07:56 05/26/17 07:56 - Constitutional Appears: Well - Head Exam Head Exam: ATRAUMATIC, NORMAL INSPECTION, NORMOCEPHALIC - Eye Exam Eye Exam: EOMI, Normal appearance, PERRL Pupil Exam: NORMAL ACCOMODATION, PERRL - ENT Exam ENT Exam: Mucous Membranes Moist, Normal Exam - Neck Exam Neck Exam: Full ROM, Normal Inspection. absent: Lymphadenopathy - Respiratory Exam Respiratory Exam: Decreased Breath Sounds - Cardiovascular Exam Cardiovascular Exam: REGULAR RHYTHM, +S1, +S2 - GI/Abdominal Exam GI & Abdominal Exam: Soft, Diminished Bowel Sounds - Rectal Exam Rectal Exam: Deferred
--- NOTE | 2017-05-26 23:52 | CP.PCM.PN ---
Subjective - Date & Time of Evaluation Date of Evaluation: 05/26/17 Time of Evaluation: 11:00 - Subjective Subjective: Events reviewed. non surgical anatomy Objective - Vital Signs/Intake and Output Vital Signs (last 24 hours): Temp Pulse Resp BP Pulse Ox 98.3 F 97 H 18 119/64 95 05/26/17 23:18 05/26/17 23:18 05/26/17 23:18 05/26/17 23:18 05/26/17 23:18 Intake and Output: 05/26/17 05/27/17 18:59 06:59 Intake Total 300 Balance 300 - Medications Medications: Current Medications Acetaminophen (Tylenol 325mg Tab) 650 mg PO Q6H PRN PRN Reason: Temperature Amlodipine Besylate (Norvasc) 5 mg PO DAILY [facility] Last Admin: 05/26/17 09:57 Dose: 5 mg Aspirin (Aspirin Chewable) 81 mg PO DAILY [facility] Last Admin: 05/26/17 09:58 Dose: 81 mg Clopidogrel Bisulfate (Plavix) 75 mg PO DAILY [facility] Last Admin: 05/26/17 09:58 Dose: 75 mg Famotidine (Pepcid) 20 mg PO HS [facility] Last Admin: 05/26/17 21:38 Dose: 20 mg Heparin Sodium (Porcine) (Heparin) 5,000 units SC Q8H [facility] Last Admin: 05/26/17 17:38 Dose: 5,000 units Rosuvastatin Calcium (Crestor) 5 mg PO [facility] Last Admin: 05/26/17 21:38 Dose: 5 mg - Labs Labs: 05/26/17 07:56 05/26/17 07:56 - Constitutional Appears: Well, Non-toxic - Respiratory Exam Respiratory Exam: Clear to Ausculation Bilateral, NORMAL BREATHING PATTERN - Cardiovascular Exam Cardiovascular Exam: REGULAR RHYTHM, RRR, +S1, +S2. absent: JVD - GI/Abdominal Exam GI & Abdominal Exam: Normal Bowel Sounds. absent: Organomegaly Assessment and Plan - Assessment and Plan (Free Text) Assessment: 82 year old man with severe cerebrovascular ASHD with Severe intra cranial ICA stenosis along with Left Proximal ICA severe stenosis; High dose statin, DAPT Dementia - chronic and stable HTN is chronic and stable Consider D/C planning
[2017-05-27 08:12] VITALS: RESP 20
--- NOTE | 2017-05-27 08:43 | CP.PCM.PN ---
Subjective - Date & Time of Evaluation Date of Evaluation: 05/27/17 Time of Evaluation: 08:34 - Subjective Subjective: Mr. Krueger was seen and examined at the bedside. He is alert oriented to place and person except for time ( 1983). He denies any headache, dizziness, lightheadedness, nausea, or vomiting. He is able to answer some questions appropriately and follow simple commands. The patient had carotid angiogram saturday. He has a right groin dressing intact, however with noticeable hematoma approximately 5 cm in length and 1 cm in width. There is a minimal oozing from the puncture site. pressure applied for 15 minutes, size decrease, but with very minimal hard area around the puncture site. Dressing change. The patient claims of very minimal pain and + CMS. There is a distinguish decrease of strength in the right leg pulse. He was ambulating to and from the bathroom with steady gait. He remains on 1:1 sitter for patient safety. There was no untoward events overnight. Objective - Vital Signs/Intake and Output Vital Signs (last 24 hours): Temp Pulse Resp BP Pulse Ox 98 F 86 20 143/69 96 05/27/17 08:00 05/27/17 08:00 05/27/17 08:00 05/27/17 08:00 05/27/17 08:00 Intake and Output: 05/27/17 05/27/17 06:59 18:59 Intake Total 300 Balance 300 - Medications Medications: Current Medications Acetaminophen (Tylenol 325mg Tab) 650 mg PO Q6H PRN PRN Reason: Temperature Amlodipine Besylate (Norvasc) 5 mg PO DAILY [facility] Last Admin: 05/26/17 09:57 Dose: 5 mg Aspirin (Aspirin Chewable) 81 mg PO DAILY [facility] Last Admin: 05/26/17 09:58 Dose: 81 mg Clopidogrel Bisulfate (Plavix) 75 mg PO DAILY [facility] Last Admin: 05/26/17 09:58 Dose: 75 mg Famotidine (Pepcid) 20 mg PO [facility] Last Admin: 05/26/17 21:38 Dose: 20 mg Heparin Sodium (Porcine) (Heparin) 5,000 units SC Q8H [facility] Last Admin: 05/27/17 01:24 Dose: 5,000 units Rosuvastatin Calcium (Crestor) 5 mg PO [facility] Last Admin: 03/11/18 21:38 Dose: 5 mg - Labs Labs: 05/26/17 07:56 05/26/17 07:56 - Constitutional Appears: No Acute Distress - Head Exam Head Exam: NORMAL INSPECTION - Neurological Exam Neurological Exam: Alert, Awake Neuro motor strength exam: Left Upper Extremity: 4, Right Upper Extremity: 4, Left Lower Extremity: 4, Right Lower Extremity: 4 Additional comments: He is alert, oriented x2, follows commands. Sensation remains intact. Assessment and Plan (1) Carotid arterial disease Assessment & Plan: Case discussed with Dr. Gray, continue all current medical regimen. Recommend monitoring right groin area, arterial doppler of the right leg to r/o pseudoaneurym or hematoma, monitor h/h. Status: Chronic
[2017-05-27 09:11] LABS: HEMOGLOBIN 14.1 g/dL (12.0-18.0); MEAN CELL VOLUME 87.6 fL (80.0-94.0); MEAN CORPUSCULAR HEMOGLOBIN 31.1 pg (27.0-31.0); MEAN CORPUSCULAR HGB CONC 35.5 g/dL (33.0-37.0); MEAN PLATELET VOLUME 9.2 fL (7.2-11.7); RBC 4.53 Mil/uL (4.40-5.90); RED CELL DISTRIBUTION WIDTH 13.2 % (11.5-14.5); WHITE BLOOD COUNT 9.2 K/uL (4.8-10.8)
--- NOTE | 2017-05-27 12:05 | VASCLAB ---
PROCEDURE: Duplex Scan of the Right Groin HISTORY: Hematoma of the right groin, r/o pseudoaneurysm COMPARISON: None available. TECHNIQUE: FINDINGS: The velocities of the arteries in the right groin are as follows: common femoral 95 cm/s, profunda femoral 95 cm/s, and proximal superficial femoral 89 cm/s. The right common femoral vein, profunda femoral vein and proximal femoral vein, are compressible with normal phasic flow patterns. IMPRESSION: 1. Normal velocities noted of the right groin arteries, with triphasic arterial waveforms. 2. No evidence of pseudoaneurysm, hematoma or venous thrombosis in the right groin.
--- NOTE | 2017-05-27 15:40 | CP.PCM.PN ---
Subjective - Date & Time of Evaluation Date of Evaluation: 05/27/17 Time of Evaluation: 09:50 - Subjective Subjective: clinically same Objective - Vital Signs/Intake and Output Vital Signs (last 24 hours): Temp Pulse Resp BP Pulse Ox 98 F 94 H 20 127/53 L 96 05/27/17 08:00 05/27/17 10:06 05/27/17 08:00 05/27/17 10:06 05/27/17 08:00 Intake and Output: 05/27/17 05/27/17 06:59 18:59 Intake Total 300 570 Balance 300 570 - Medications Medications: Current Medications Acetaminophen (Tylenol 325mg Tab) 650 mg PO Q6H PRN PRN Reason: Temperature Amlodipine Besylate (Norvasc) 5 mg PO DAILY [facility] Last Admin: 05/27/17 10:07 Dose: 5 mg Aspirin (Aspirin Chewable) 81 mg PO DAILY [facility] Last Admin: 05/27/17 10:07 Dose: 81 mg Clopidogrel Bisulfate (Plavix) 75 mg PO DAILY [facility] Last Admin: 05/27/17 10:07 Dose: 75 mg Famotidine (Pepcid) 20 mg PO [facility] Last Admin: 05/26/17 21:38 Dose: 20 mg Heparin Sodium (Porcine) (Heparin) 5,000 units SC Q8H [facility] Last Admin: 05/27/17 10:08 Dose: 5,000 units Rosuvastatin Calcium (Crestor) 5 mg PO [facility] Last Admin: 05/26/17 21:38 Dose: 5 mg - Labs Labs: 05/27/17 09:08 05/26/17 07:56 - Constitutional Appears: Well - Head Exam Head Exam: ATRAUMATIC, NORMAL INSPECTION, NORMOCEPHALIC - Eye Exam Eye Exam: EOMI, Normal appearance, PERRL Pupil Exam: NORMAL ACCOMODATION, PERRL - ENT Exam ENT Exam: Mucous Membranes Moist, Normal Exam - Neck Exam Neck Exam: Full ROM, Normal Inspection. absent: Lymphadenopathy - Respiratory Exam Respiratory Exam: Decreased Breath Sounds - Cardiovascular Exam Cardiovascular Exam: REGULAR RHYTHM, +S1, +S2 - GI/Abdominal Exam GI & Abdominal Exam: Soft, Diminished Bowel Sounds - Rectal Exam Rectal Exam: Deferred Assessment and Plan - Assessment and Plan (Free Text) Plan: Continue aspirin Continue heparin Rosuvastatin Surgery postponed Discharge planning to rehab We will discuss with the
[2017-05-28 08:01] VITALS: BP 123/70; TEMP 97.7; O2SAT 97
[2017-05-28 11:57] LABS: ALBUMIN 3.7 g/dL (3.5-5.0); ALT/SGPT 23 U/L (21-72); AST/SGOT 23 U/L (17-59); BLOOD UREA NITROGEN 28 mg/dL (9-20); GFR AFRICAN-AMERICAN > 60; GFR NON-AFRICAN AMERICAN > 60
--- NOTE | 2017-05-28 15:59 | CP.PCM.PN ---
Subjective - Date & Time of Evaluation Date of Evaluation: 05/28/17 Time of Evaluation: 15:59 - Subjective Subjective: PATIENT WAS ADMITTED FOR [facility] STENOSIS S/P ANGIAPLASTY DENIES HEADACHE, CHEST PAIN, DIZZINESS OR SOB NO SIGN OF ACUTE DISTRESS NOTED Objective - Vital Signs/Intake and Output Vital Signs (last 24 hours): Temp Pulse Resp BP Pulse Ox 97.7 F 78 20 123/70 97 05/28/17 08:00 05/28/17 08:34 05/28/17 08:00 05/28/17 08:00 05/28/17 08:00 Intake and Output: 05/28/17 05/28/17 06:59 18:59 Intake Total 120 Balance 120 - Medications Medications: Current Medications Acetaminophen (Tylenol 325mg Tab) 650 mg PO Q6H PRN PRN Reason: Temperature Amlodipine Besylate (Norvasc) 5 mg PO DAILY [facility] Last Admin: 05/28/17 09:15 Dose: 5 mg Aspirin (Aspirin Chewable) 81 mg PO DAILY [facility] Last Admin: 05/28/17 09:15 Dose: 81 mg Clopidogrel Bisulfate (Plavix) 75 mg PO DAILY [facility] Last Admin: 05/28/17 09:15 Dose: 75 mg Famotidine (Pepcid) 20 mg PO HS [facility] Last Admin: 05/27/17 21:59 Dose: 20 mg Heparin Sodium (Porcine) (Heparin) 5,000 units SC Q8H [facility] Last Admin: 05/28/17 09:16 Dose: 5,000 units Rosuvastatin Calcium (Crestor) 5 mg PO HS [facility] Last Admin: 05/27/17 21:59 Dose: 5 mg - Labs Labs: 05/27/17 09:08 05/28/17 11:19 Assessment and Plan - Assessment and Plan (Free Text) Assessment: PATIENT WAS SEEN AND EXAMINED AT THE BEDSIDE CAROTID 75 STENOSIS S/P ANGIOPLASTY AND NO STENT WAS PLACE PATIENT WILL F/U PHARM THERAPY AT THIS TIME DISCUSS WITH DR OSULLIVAN WHO AGREE PLACE UNDER THE SERVICE OF DR Mateo OSULLIVAN AT [facility] ---CALL DR Mateo OSULLIVAN FOR ADMITTED ORDER CONTINUE ALL YOUR HOME MEDICATION ACTIVITY TOLERATED AND FACILITY PROTOCOL CALL DR Mateo OSULLIVAN FOR FURTHER ORDER DISCUSS WITH PATIENT AND PATIENT'S SON WHO AGREE AND VERBALIZED UNDERSTANDING
[2017-05-28 16:02] VITALS: PULSE 96
--- NOTE | 2017-05-28 17:24 | CP.PCM.PN ---
Subjective - Date & Time of Evaluation Date of Evaluation: 05/28/17 Time of Evaluation: 08:40 - Subjective Subjective: clinically same Objective - Vital Signs/Intake and Output Vital Signs (last 24 hours): Temp Pulse Resp BP Pulse Ox 97.7 F 96 H 20 123/70 97 05/28/17 08:00 05/28/17 16:41 05/28/17 08:00 05/28/17 08:00 05/28/17 08:00 Intake and Output: 05/28/17 05/28/17 06:59 18:59 Intake Total 120 400 Balance 120 400 - Medications Medications: Current Medications Acetaminophen (Tylenol 325mg Tab) 650 mg PO Q6H PRN PRN Reason: Temperature Amlodipine Besylate (Norvasc) 5 mg PO DAILY [facility] Last Admin: 05/28/17 09:15 Dose: 5 mg Aspirin (Aspirin Chewable) 81 mg PO DAILY [facility] Last Admin: 05/28/17 09:15 Dose: 81 mg Clopidogrel Bisulfate (Plavix) 75 mg PO DAILY [facility] Last Admin: 05/28/17 09:15 Dose: 75 mg Famotidine (Pepcid) 20 mg PO [facility] Last Admin: 05/27/17 21:59 Dose: 20 mg Heparin Sodium (Porcine) (Heparin) 5,000 units SC Q8H [facility] Last Admin: 05/28/17 17:15 Dose: 5,000 units Rosuvastatin Calcium (Crestor) 5 mg PO [facility] Last Admin: 05/27/17 21:59 Dose: 5 mg - Labs Labs: 05/27/17 09:08 05/28/17 11:19 - Constitutional Appears: Well - Head Exam Head Exam: ATRAUMATIC, NORMAL INSPECTION, NORMOCEPHALIC - Eye Exam Eye Exam: EOMI, Normal appearance, PERRL Pupil Exam: NORMAL ACCOMODATION, PERRL - ENT Exam ENT Exam: Mucous Membranes Moist, Normal Exam - Neck Exam Neck Exam: Full ROM, Normal Inspection. absent: Lymphadenopathy - Respiratory Exam Respiratory Exam: Decreased Breath Sounds - Cardiovascular Exam Cardiovascular Exam: REGULAR RHYTHM, +S1, +S2 - GI/Abdominal Exam GI & Abdominal Exam: Soft, Diminished Bowel Sounds - Rectal Exam Rectal Exam: Deferred Assessment and Plan - Assessment and Plan (Free Text) Plan: Talk to the son Dieudonne at length Continue aspirin Continue Crestor Continue Plavix Aspirin 4 discharged today to care 1 Discussed with the nurse practitioner
--- NOTE | 2017-05-29 12:08 | CARD ---
APPROVED REPORT EKG Measurement Heart [id number] <Conclusion> Sinus rhythm with premature atrial complexes Inferior infarct, age undetermined Anteroseptal infarct, age undetermined T wave abnormality, consider lateral ischemia Abnormal ECG
== END 2017-05-28 21:30 | DRG 312 ==
LOC: C.5S 11:42
PROVIDERS: ADMIT Internal Medicine Nephrology; ATTEND Internal Medicine Nephrology
DX: R55 Syncope and collapse (principal); I65.22 Occlusion and stenosis of left carotid artery; F03.90 Unspecified dementia, unspecified severity, without behavioral disturbance, psychotic disturbance, mood disturbance, and anxiety; I10 Essential (primary) hypertension